=== PATIENT | female | born 1960 | race Caucasian/White ===

== ENCOUNTER → 2016-07-10 14:19 | Outpatient (CLI) | payer MEDICARE, MEDICAID ==
[2015-12-23 04:41] VITALS: BMI 23.4
[~2016-07-10 14:19] MED LIST: ASPIRIN81 MG PO; BAYER CHEWABLE81 MG PO; BUTALB-APAP-CA1 EACH PO; CARAFATE1 G PO; CARAFATE1 G/10 ML PO; DULCOLAX5 MG PO; EFFIENT10 MG PO; ESGIC TABLET1 TAB PO; HYDROCODON-ACE1 EAC7 PO; HYDROCODON-ACE1 EAC9 PO; HYDROCODONE-APA1 TAB PO; LIBRIUM25 MG PO; LINZESS145 MCG PO; MEDROL DOSE PACK4 MG PO; MIRALAX17 GM PO; NICODERM C1 PATCH .1 TRANSDERM; NICODERM C1 PATCH .2 TRANSDERM; NITROQUICK0.4 MG SL; OMEPRAZOLE20 M1 PO; PEPCID20 MG PO; PHENERGAN25 M1 PO; PLAVIX75 MG PO; PRAVACHOL20 MG PO; PROTONIX40 MG PO; PROVENTIL HFA6.7 GM INH; PROZAC20 MG PO; ROBAXIN-750750 MG PO; SOMA350 MG PO; TESSALON PERLE100 MG PO; VALIUM5 MG PO
== END | disposition home or self-care (01) ==
LOC: D.MRI 07-03 07:56
DX: M54.12 Radiculopathy, cervical region (principal)

== ENCOUNTER 2016-07-16 18:19 | Emergency (ER) | payer MEDICARE, MEDICAID ==
[2015-12-23 04:41] VITALS: BMI 23.4
[2016-07-16 21:06] LABS: BASOPHILS 0.2 % (0.0-2.0); EOSINOPHILS 1.8 % (0-7); HEMATOCRIT 41.3 % (36.0-48.0); HEMOGLOBIN 13.8 g/dL (12-16); IMMATURE GRANULOCYTES 0.4 % (0-5); LYMPHOCYTES 33.5 % (15-50); MCH 31.1 pg (26.0-34.0); MCHC 33.4 g/dL (31.0-37.0); MEAN PLATELET VOLUME 9.9 fL (7.4-10.4); MONOCYTES 10.6 % (2-11); NEUTROPHILS 53.5 % (40-80); PLATELET COUNT 275 10x3/uL (130-400); RBC 4.44 10x6/uL (4.00-5.40); RDW 14.7 % (11.5-14.5); WBC 8.2 10x3/uL (4.8-10.8)
[2016-07-16 21:18] LABS: ALBUMIN 3.6 g/dL (3.4-5.0); ANION GAP 14.4 mmol/L (8-16); BILIRUBIN - TOTAL 0.15 mg/dL (0.2-1.3); CALCIUM 8.8 mg/dL (8.5-10.1); CREATININE - SERUM 0.9 mg/dL (0.6-1.3); POTASSIUM - SERUM 4.4 mmol/L (3.5-5.1); PROTEIN - SERUM 7.6 g/dL (6.4-8.2)
== END 2016-07-16 22:25 | disposition home or self-care (01) ==
LOC: D.ER 18:19
PROVIDERS: Emergency Medicine
DX: R20.0 Anesthesia of skin (principal); R21 Rash and other nonspecific skin eruption; F31.9 Bipolar disorder, unspecified; I10 Essential (primary) hypertension; K21.9 Gastro-esophageal reflux disease without esophagitis; F17.200 Nicotine dependence, unspecified, uncomplicated

== ENCOUNTER 2016-12-26 08:29 | Observation (INO) | payer MEDICARE, MEDICAID ==
[2016-12-26 08:55] LABS: BASOPHILS 0.3 % (0-2); EOSINOPHILS 1.3 % (0-7); HEMATOCRIT 41.7 % (36.0-48.0); HEMOGLOBIN 14.1 g/dL (12-16); IMMATURE GRANULOCYTES 0.2 % (0-5); LYMPHOCYTES 36.9 % (15-50); MCH 31.8 pg (26.0-34.0); MCHC 33.8 g/dL (31.0-37.0); MCV 93.9 fL (80.0-100.0); MEAN PLATELET VOLUME 9.6 fL (7.4-10.4); NEUTROPHILS 48.3 % (40-80); PLATELET COUNT 276 10x3/uL (130-400); RBC 4.44 10x6/uL (4.00-5.40); RDW 14.8 % (11.5-14.5); WBC 6.1 10x3/uL (4.8-10.8)
[2016-12-26 09:10] LABS: ALBUMIN 3.3 g/dL (3.4-5.0); ALKALINE PHOSPHATASE 111 U/L (46-116); ALT (SGPT) 19 U/L (10-68); BILIRUBIN - TOTAL 0.32 mg/dL (0.2-1.3); CALC OSMOLALITY 274 mosm/kg (275-300); CALCIUM 8.8 mg/dL (8.5-10.1); CARBON DIOXIDE 25.5 mmol/L (21.0-32.0); CHLORIDE - SERUM 104 mmol/L (98-107); CREATININE - SERUM 0.8 mg/dL (0.6-1.3); GLUCOSE 88 mg/dL (74-106); POTASSIUM - SERUM 4.1 mmol/L (3.5-5.1); PROTEIN - SERUM 7.4 g/dL (6.4-8.2); SODIUM 138 mmol/L (136-145); UREA NITROGEN 13 mg/dL (7-18); eGFR NON AFRICAN AMERICAN 78 mL/min (90-120)
[2016-12-26 09:20] LABS: CHOL - HDL RATIO 2.9 ratio (2.3-4.1); CHOLESTEROL, TOTAL 214 mg/dL (0-200); CKMB 0.2 U/L (0.0-3.6); CREATINE KINASE 28 UL (21-215); HDL CHOLESTEROL 73 mg/dL (32-96); LDL CHOLESTEROL 116 mg/dL (0-100); LDL-HDL RATIO 1.6 ratio (1.5-3.5); TRIGLYCERIDE 127 mg/dL (30-200); TROPONIN-I < 0.017 ng/mL (0.000-0.060)
--- NOTE | 2016-12-26 13:23 | NUR ---
PATIENT ARRIVED TO ROOM VIA WHEELCHAIR FROM ED. ALERT/ORIENTED, AMBULATORY. 20 GAUGE TO LEFT HAND. 02 AT 2L/NC PLACED TO PATIENT AT THIS TIME. NO ACUTE DISTRESS.
[2016-12-26] MEDS ORDERED: BAYER CHEWABLE81 MG PO (13:27)
[2016-12-26] MEDS ORDERED: PEPCID40 MG PO (13:29)
[2016-12-26] MEDS ORDERED: HYDROCODONE-APA1 TAB PO (13:30)
[2016-12-26] MEDS ORDERED: VALIUM10 MG PO (13:31)
[2016-12-26] MEDS ORDERED: LINZESS290 MCG PO (13:32)
[2016-12-26 13:59] VITALS: BP 117/72; BMI 20.8
[2016-12-26 16:24] VITALS: BP 117/72
--- NOTE | 2016-12-26 18:28 | NUR ---
MEDICATED FOR PAIN AT THIS TIME. NO DISTRESS.
[2016-12-26 20:52] VITALS: BP 94/59
[2016-12-27 01:06] VITALS: BP 92/60
--- NOTE | 2016-12-27 01:43 | NUR ---
PT'S BP HAS BEEN 90/50'S AND SHE HAD RECIEVED IV PAIN MED AT 1830. SHE IS NOW HURTING/CANNOT SLEEP. SHE IS USED TO TAKING HYDROCODONES AND VALIUM AT BEDTIME. DECISION MADE TO GIVE HER THE HYDROCODONE AND THE 10MG VALIUM WITH THE KNOWLEDGE THAT THIS IS WHAT HER BODY IS USED TO TAKING .WILL MONITOR BLOOD PRESSURE, EXPECING A SLIGHT LOWERING, BUT WITH THE KNOWLEDGE THAT THE MEDS GIVEN HAVE BEEN SPACED OUT AND ARE BEING MONITORED.
[2016-12-27 02:08] VITALS: BP 98/61
[2016-12-27 04:00] VITALS: BP 86/47
--- NOTE | 2016-12-27 05:56 | NUR ---
AM MEDS GIVEN. PT RESTING IN BED WITH NO DISTRESS. CPOC.
--- NOTE | 2016-12-27 07:00 | NUR ---
RECEIVED REPORT. ASSUMED CARE OF PATIENT. PATIENT AWAKE, ALERT. SPOUSE AT BEDSIDE. PATIENT SITTING UP IN BED. DENIES PAIN OR DISCOMFORT AT THIS TIME. NO DISTRESS. SR ON TELEMETRY.
[2016-12-27 07:18] LABS: BASOPHILS 0 % (0-2); HEMATOCRIT 38.7 % (36.0-48.0); HEMOGLOBIN 12.9 g/dL (12-16); IMMATURE GRANULOCYTES 0.4 % (0-5); MCH 31.5 pg (26.0-34.0); MCHC 33.3 g/dL (31.0-37.0); MCV 94.4 fL (80.0-100.0); MEAN PLATELET VOLUME 9.8 fL (7.4-10.4); MONOCYTES 10.7 % (2-11); NEUTROPHILS 52.9 % (40-80); PLATELET COUNT 257 10x3/uL (130-400); RDW 15.1 % (11.5-14.5); WBC 5.1 10x3/uL (4.8-10.8)
[2016-12-27 07:30] LABS: CALC OSMOLALITY 279 mosm/kg (275-300); CALCIUM 8.7 mg/dL (8.5-10.1); CARBON DIOXIDE 27.3 mmol/L (21.0-32.0); CHLORIDE - SERUM 105 mmol/L (98-107); CREATININE - SERUM 0.8 mg/dL (0.6-1.3); GLUCOSE 97 mg/dL (74-106); SODIUM 140 mmol/L (136-145); UREA NITROGEN 15 mg/dL (7-18); eGFR NON AFRICAN AMERICAN 78 mL/min (90-120)
[2016-12-27 07:32] LABS: POTASSIUM - SERUM 4.8 mmol/L (3.5-5.1)
[2016-12-27 08:00] VITALS: BP 111/72
--- NOTE | 2016-12-27 09:21 | NUR ---
MEDICATED FOR PAIN AND ANXIETY AT THIS TIME. NO DISTRESS.
--- NOTE | 2016-12-27 10:58 | NUR ---
MEDICATED FOR HEADACHE AT THIS TIME. NO DISTRESS. PATIENT STATES THE PAIN IS SPREADING ALL OVER HER HEAD.
[2016-12-27 11:00] VITALS: BP 101/58
--- NOTE | 2016-12-27 13:15 | NUR ---
RESTING IN BED WITH EYES OPEN. NO DISTRESS. CALL LIGHT WITHIN REACH.
--- NOTE | 2016-12-27 13:39 | NUR ---
2MG MORPHINE ADMINISTERED AT THIS TIME FOR CHEST PAIN. RESTING IN BED WITH EYES OPEN. PATIENT STATES SHE HAS BEEN SWEATING, PATIENT UNDER 2 BLANKETS AND IT IS FREELANCE TRANSLATOR HER ROOM. BLANKETS REMOVED.
--- NOTE | 2016-12-27 13:48 | NUR ---
FOOD REQUEST SUBMITTED AT THIS TIME. UDS COLLECTED. NO DISTRESS.
[2016-12-27 14:10] LABS: UDS - AMPHET NEGATIVE QUAL (NEGATIVE); UDS - BARB POSITIVE QUAL (NEGATIVE); UDS - BENZO POSITIVE QUAL (NEGATIVE); UDS - COCAINE NEGATIVE QUAL (NEGATIVE); UDS - OPIATE POSITIVE QUAL (NEGATIVE); UDS - PCP NEGATIVE QUAL (NEGATIVE); UDS - THC NEGATIVE QUAL (NEGATIVE)
[2016-12-27 15:04] VITALS: BP 118/62
--- NOTE | 2016-12-27 18:15 | NUR ---
MEDICATED FOR PAIN AT THIS TIME. NO DISTRESS.
--- NOTE | 2016-12-27 21:45 | NUR ---
BEDTIME MEDS GIVEN, INCLUDING VALIUM 10MG TO HELP PT RELAX AND REST. CONVERSED WITH PT ON WHERE SHE FEELS HER PAIN, IF SHE HAS TALKED WITH THE MD ABOUT THE SPECIFIC LOCATIONS AND WHAT THE MD HAS SAID. PT SAID THE DOCTORS ARE NOT DOING ANYTHING. SHE IS VERY UPSET SAYING NOBODY BELIEVES HER. DISCUSSED PT CURRENT MED REGIMEN WHEN SHE IS AT HOME AND SHE TAKES HER MEDS DIFFERENTLY THAN THEY ARE BEING ADMINISTERED HERE. ENCOURAGED PT TO RELAX, TRY TO REST. CPOC.
[2016-12-28] VITALS: BP 128/77
--- NOTE | 2016-12-28 00:21 | NUR ---
PT OUT TO NURSES STATION, VERY TREMULOUS AND SHAKY. DEMANDING HER FIORCET FOR CHEST/BREAST PAIN. EXPLAINED THAT FIORCET IS FOR MIGRAINES BUT PT INSISTS SHE BE GIVEN IT NOW. PT YELLING AT NURSE SAYING NURSE ACCUSED HER OF BEING A DRUG ADDICT. DEMANDING A DRUG SCREEN RIGHT NOW TO PROVE SHE TAKES NO DRUGS. PT VERY UNFOCUSED, TEARFUL AND ANGRY ALL AT THE SAME TIME. PT THEN RETURNED TO HER ROOM. BROUGHT FIORCET TO PT'S ROOM AND HER INITIAL RESPONSE WAS TO REFUSE, THEN SHE FINALLY TOOK IT. REVIEWED EARLIER CONVERSATION WITH PATIENT AND APOLOGIZED IF SHE FELT THE QUESTIONS/COMMENTS BELITTLED HER IN ANY WAY. EXPLAINED THAT SINCE PT WAS IN SUCH AGONY ABOUT HER BREAST PAIN, THAT PROMPTED THE MULTIPLE QUESTIONS ABOUT WHAT SHE NORMALLY TAKES, HOW OFTEN SHE TAKES IT, ETC. PT IS CONVINCED NURSE WAS GATHERING INFO TO PROVE SHE WAS A "DRUG HEAD". PT ALSO SEEMS VERY UPSET ABOUT PENDING DISCHARGE IN AM. WILL MONITOR. PROVIDE MEDS ORDERED. CPOC.
--- NOTE | 2016-12-28 03:47 | NUR ---
PT NOW RESTING IN BED WITH EYES CLOSED. NO DISTRESS. NO FURTHER OUTBURSTS. CALL LIGHT IN REACH. CPOC.
[2016-12-28 04:00] VITALS: BP 111/78
[2016-12-28 05:38] LABS: BASOPHILS 0.1 % (0-2); EOSINOPHILS 0.9 % (0-7); HEMATOCRIT 38.8 % (36.0-48.0); IMMATURE GRANULOCYTES 0.2 % (0-5); LYMPHOCYTES 19.9 % (15-50); MCH 31.6 pg (26.0-34.0); MCHC 33.5 g/dL (31.0-37.0); MCV 94.4 fL (80.0-100.0); MONOCYTES 7.7 % (2-11); NEUTROPHILS 71.2 % (40-80); PLATELET COUNT 269 10x3/uL (130-400); RBC 4.11 10x6/uL (4.00-5.40); RDW 15.1 % (11.5-14.5)
[2016-12-28 05:47] LABS: CALC OSMOLALITY 279 mosm/kg (275-300); CALCIUM 8.3 mg/dL (8.5-10.1); CARBON DIOXIDE 27.7 mmol/L (21.0-32.0); CHLORIDE - SERUM 105 mmol/L (98-107); CREATININE - SERUM 0.8 mg/dL (0.6-1.3); GLUCOSE 95 mg/dL (74-106); POTASSIUM - SERUM 4.2 mmol/L (3.5-5.1); SODIUM 140 mmol/L (136-145); UREA NITROGEN 16 mg/dL (7-18); WBC 8.7 10x3/uL (4.8-10.8); eGFR NON AFRICAN AMERICAN 78 mL/min (90-120)
--- NOTE | 2016-12-28 07:30 | NUR ---
RECEIVED PT IN BED AAOX4 RESP UNLABORED APPEARS ANXIOUS DENIES ANY NEEDS OR DISCOMFORT AT THIS TIME WILL CONTINUE TO MONITOR
[2016-12-28 08:00] VITALS: BP 125/84
[2016-12-28 11:43] VITALS: BP 112/70
--- NOTE | 2016-12-28 13:15 | NUR ---
REVIEWED DISCHARGE INSTRUCTIONS WITH PT STATES UNDERSTANDING COPY GIVEN DCD LT WRIST SALINE LOCK WITH CATHETER TIP INTACT SITE FREE OF REDNESS OR EDEMA PT DISCHARGED HOME LEFT UNIT WALKING WITH REFUSED TO WAIT ON W/C IN STABLE CONDITION TOOK ALL PERSONAL BELONGINGS
--- NOTE | 2017-01-07 12:47 | EC ---
PATIENT:WARNER BARRY DATE OF SERVICE: 12/26/16 SEX: F MEDICAL RECORD: [id number] DATE OF : 58 LOCATION:D. D.212 AGE OF PATIENT: 56 ADMISSION DATE: 12/26/16 REFERRING PHYSICIAN: INTERPRETING PHYSICIAN: ASHLEY MAURER MD ECHOCARDIOGRAM REPORT ECHO CHARGES 4 ECHO COMPLETE CLINICAL DIAGNOSIS: CHEST PAIN HX OF CAD/STENTS ECHOCARDIOGRAPHIC MEASUREMENTS (adult normal given) AC root (d.<3.7cm) 3.8 cm LV Septum d (<1.2 cm> 1.2 cm Valve Excursion 2.4 cm LV Septum (systole) 1.6 cm Left Atria (s.<4.0cm> 3.4 cm LVPW d(<1.2cm) 1.1 cm RV (d.<2.3cm) 3.4 cm LVPW (sytole) 1.6 cm LV diastole(<5.6CM) 4.8 cm MV E-F(>70mm/sec) cm LV systole 3.3 cm LVOT Diameter 2.0 cm MV exc.(>10mm) 1.4 cm Est.ejection fraction (50-75%) % Pericardial Effusion N DOPPLER: LVIT cm/sec A 83.0 cm/sec E 76.0 cm/sec LA cm/sec RVSP 34 mmHg LVOT 105 cm/sec AOP1/2T m/s Asc. Ao 134 cm/sec RVOT 85 cm/sec RA cm/sec PA 103 cm/sec AV Gradient Peak 7.25 mmHg AV Mean 3.13 mmHg AV Area 2.4 cm MV Gradient Peak 4.23 mmHg MV Mean 1.51 mmHg MV Area cm COMMENTS: Automatic Grinding Machine Operator: Melissa VERDUGO [employer] Internship: 4 Dr. Maurer TAPE# PACS DATE OF SERVICE: 12/27/2016 Transthoracic Echocardiogram Report FINDINGS: 1. Left ventricle is normal size, normal function with inflow characteristics that showed mild diastolic dysfunction with ejection fraction of 60% to 65% without regional wall motion abnormalities. 2. The mitral valve is structurally and grossly normal. There is evidence of mild mitral regurgitation. ECHOCARDIOGRAM REPORT [id number] WARNER BARRY 3. The tricuspid valve is structurally normal with mild tricuspid regurgitation and a right ventricular systolic pressure is estimated between 25 and 30 mmHg. 4. The pulmonic valve is structurally normal. 5. The right atrium is normal size, normal function. 6. The right ventricle is mildly enlarged. 7. The aortic valve is normal. 8. The pericardium is normal. There is no demonstrated pericardial effusion. CONCLUSIONS: The patient has evidence of mild hypertensive heart disease with preserved LV systolic function and grossly normal valvular structure without any evidence of regional wall motion abnormalities. TRANSINT:[id number] Voice Confirmation ID: [id number] DOCUMENT ID: [id number] 01/05/2017 Edited to correct date of service, dm. ASHLEY MAURER MD at 1247 CC: [id number] DICTATION DATE: 12/28/16 0714 CONFIGURATION TECHNICIAN: 12/28/16 1055 DIS IN 12/28/16 [id number] [place] [address]
--- NOTE | 2017-01-18 15:54 | DS ---
PATIENT:WARNER BARRY :58 MEDICAL RECORD: [id number] DISCHARGE SUMMARY ADMISSION DATE: 12/26/16 DISCHARGE DATE: 12/28/16 ADMIT DATE: 12/26/2016. DISCHARGE DATE: 12/28/2016. DIAGNOSES: 1. Chest pain. 2. Abdominal pain. 3. Hypertension. 4. Coronary artery disease. CONSULTS: Dr. Marx DIAGNOSTIC STUDIES OR PROCEDURES: 1. Chest, which is negative. 2. CT of the abdomen and pelvis, which showed no acute abdominal finding. She had a large fecal material in the colon. 3. 2D Echo, which shows an EF of 60% to 65% with mild mitral regurg. She had mild tricuspid regurgitation. HOSPITAL COURSE: The full H&P is listed elsewhere in the chart for this 56-year-old patient who was admitted with lower sternal pain, midepigastric, and upper abdominal pain. She was placed on the medical jackson for further evaluation. She did have some bradycardia, rates in the 50s, but it did not require any kind of treatment or intervention. Cardiology was consulted due to her chest pain. It was felt to be atypical in etiology. She had no EKG changes. Enzymes were negative. It was felt to be cholinergic in nature. Her imaging studies of her abdomen did not show any acute pathology other than moderate constipation. The patient's clinical condition improved. She was thought to be stable to discharge to home. See med rec. TRANSINT:[id number] Voice Confirmation ID: [id number] DOCUMENT ID: [id number] Dictated By: ELVIS LENNON I have interviewed/examined the above patient and agree with these documented findings. BERNARDA DUTTA MD at 1110 at 1553 CC: [id number] DICTATION DATE: 01/13/17 0914 INSPECTOR ASSEMBLIES AND INSTALLATIONS: 01/13/17 1422 DIS IN 12/28/16 [address] [place] [address]
== END 2016-12-28 13:15 | disposition home or self-care (01) ==
LOC: D.ER 08:29 → D.M2 12:47 → OBSVTIME 12:47 → D.M2 12-28 13:15
PROVIDERS: Emergency Medicine; ADMIT Family Medicine
DX: R07.89 Other chest pain (principal); J44.9 Chronic obstructive pulmonary disease, unspecified; I25.10 Atherosclerotic heart disease of native coronary artery without angina pectoris; Z95.5 Presence of coronary angioplasty implant and graft; Z86.73 Personal history of transient ischemic attack (TIA), and cerebral infarction without residual deficits; I10 Essential (primary) hypertension; K21.9 Gastro-esophageal reflux disease without esophagitis; G89.29 Other chronic pain; K59.00 Constipation, unspecified; M81.0 Age-related osteoporosis without current pathological fracture; F17.203 Nicotine dependence unspecified, with withdrawal; R00.1 Bradycardia, unspecified

== ENCOUNTER → 2017-05-13 15:34 | Outpatient (CLI) | payer MEDICARE, MEDICAID ==
[~2017-05-13 15:34] MED LIST changes: +LINZESS290 MCG PO; +PEPCID40 MG PO; +VALIUM10 MG PO
== END | disposition home or self-care (01) ==
LOC: D.US 15:34
DX: I82.409 Acute embolism and thrombosis of unspecified deep veins of unspecified lower extremity (principal)

== ENCOUNTER 2017-05-21 12:53 | Emergency (ER) | payer MEDICARE, MEDICAID | END 2017-05-21 16:29 | disposition home or self-care (01) | LOC: D.ER 12:53 | DX: R51 Headache (principal); J01.90 Acute sinusitis, unspecified; I10 Essential (primary) hypertension; K21.9 Gastro-esophageal reflux disease without esophagitis; F17.200 Nicotine dependence, unspecified, uncomplicated ==

== ENCOUNTER 2017-08-06 11:09 | Observation (INO) | payer MEDICARE, MEDICAID ==
[~2017-08-06] VITALS: Ht 167.6 cm; Wt 56.8 kg
[2017-08-06 11:37] LABS: BASOPHILS 0.1 % (0-2); EOSINOPHILS 1.5 % (0-7); HEMATOCRIT 38.1 % (36.0-48.0); HEMOGLOBIN 13.1 g/dL (12-16); IMMATURE GRANULOCYTES 0.1 % (0-5); LYMPHOCYTES 27.4 % (15-50); MCH 31.3 pg (26.0-34.0); MCHC 34.4 g/dL (31.0-37.0); MCV 90.9 fL (80.0-100.0); MEAN PLATELET VOLUME 9.5 fL (7.4-10.4); MONOCYTES 8.2 % (2-11); NEUTROPHILS 62.7 % (40-80); PLATELET COUNT 281 10x3/uL (130-400); RBC 4.19 10x6/uL (4.00-5.40); WBC 7.4 10x3/uL (4.8-10.8)
[2017-08-06 12:10] LABS: ALBUMIN 3.4 g/dL (3.4-5.0); ALKALINE PHOSPHATASE 100 U/L (46-116); ALT (SGPT) 15 U/L (10-68); BILIRUBIN - TOTAL 0.27 mg/dL (0.2-1.3); CALC OSMOLALITY 275 mosm/kg (275-300); CALCIUM 8.7 mg/dL (8.5-10.1); CARBON DIOXIDE 26.7 mmol/L (21.0-32.0); CHLORIDE - SERUM 104 mmol/L (98-107); CREATININE - SERUM 0.8 mg/dL (0.6-1.3); GLUCOSE 104 mg/dL (74-106); POTASSIUM - SERUM 4.3 mmol/L (3.5-5.1); PROTEIN - SERUM 7.5 g/dL (6.4-8.2); SODIUM 138 mmol/L (136-145); UREA NITROGEN 13 mg/dL (7-18); eGFR NON AFRICAN AMERICAN 78 mL/min (90-120)
[2017-08-06 12:24] LABS: CHOL - HDL RATIO 3.3 ratio (2.3-4.1); CHOLESTEROL, TOTAL 183 mg/dL (0-200); CKMB 0.1 U/L (0.0-3.6); CREATINE KINASE 50 UL (21-215); HDL CHOLESTEROL 56 mg/dL (32-96); LDL CHOLESTEROL 94 mg/dL (0-100); LDL-HDL RATIO 1.7 ratio (1.5-3.5); TRIGLYCERIDE 165 mg/dL (30-200)
[2017-08-06 12:28] LABS: TROPONIN-I < 0.017 ng/mL (0.000-0.060)
[2017-08-06 16:25] VITALS: Ht 167.6 cm; Wt 56.8 kg
[2017-08-06 16:50] VITALS: BP 119/60
[2017-08-06 22:57] VITALS: BP 109/63
[2017-08-07 02:57] VITALS: BP 91/56
[2017-08-07 05:21] LABS: BASOPHILS 0.2 % (0-2); EOSINOPHILS 2.3 % (0-7); HEMATOCRIT 37.1 % (36.0-48.0); HEMOGLOBIN 12.5 g/dL (12-16); IMMATURE GRANULOCYTES 0.2 % (0-5); LYMPHOCYTES 37.4 % (15-50); MCH 30.9 pg (26.0-34.0); MCHC 33.7 g/dL (31.0-37.0); MCV 91.6 fL (80.0-100.0); MEAN PLATELET VOLUME 9.5 fL (7.4-10.4); MONOCYTES 7.3 % (2-11); NEUTROPHILS 52.6 % (40-80); PLATELET COUNT 255 10x3/uL (130-400); RBC 4.05 10x6/uL (4.00-5.40); RDW 14.2 % (11.5-14.5)
[2017-08-07 05:26] LABS: WBC 5.2 10x3/uL (4.8-10.8)
[2017-08-07 05:46] LABS: CALC OSMOLALITY 281 mosm/kg (275-300); CALCIUM 9.2 mg/dL (8.5-10.1); CARBON DIOXIDE 26.6 mmol/L (21.0-32.0); CHLORIDE - SERUM 108 mmol/L (98-107); CREATININE - SERUM 0.8 mg/dL (0.6-1.3); GLUCOSE 93 mg/dL (74-106); POTASSIUM - SERUM 4.2 mmol/L (3.5-5.1); SODIUM 142 mmol/L (136-145); UREA NITROGEN 11 mg/dL (7-18); eGFR NON AFRICAN AMERICAN 78 mL/min (90-120)
[2017-08-07 05:58] VITALS: BP 93/47
[2017-08-07 08:43] VITALS: BP 103/62
[2017-08-07] MEDS ORDERED: NICODERM C1 PATCH .1 TRANSDERM (08:58)
[2017-08-07] MEDS ORDERED: CARAFATE1 G PO (08:59)
[2017-08-07] MEDS ORDERED: PROTONIX40 MG PO (08:59)
== END 2017-08-07 10:52 | disposition home or self-care (01) ==
LOC: D.ER 11:09 → D.M2 12:43 → OBSVTIME 12:43 → D.M2 08-07 10:52
PROVIDERS: Emergency Medicine; Internal Medicine Nephrology
DX: R07.9 Chest pain, unspecified (principal); K25.9 Gastric ulcer, unspecified as acute or chronic, without hemorrhage or perforation; F17.203 Nicotine dependence unspecified, with withdrawal; I25.10 Atherosclerotic heart disease of native coronary artery without angina pectoris; Z95.5 Presence of coronary angioplasty implant and graft; I10 Essential (primary) hypertension; J44.9 Chronic obstructive pulmonary disease, unspecified; E78.5 Hyperlipidemia, unspecified; F41.8 Other specified anxiety disorders; Z86.73 Personal history of transient ischemic attack (TIA), and cerebral infarction without residual deficits

== ENCOUNTER 2017-11-20 05:18 | Inpatient (IN) | payer MEDICARE, MEDICAID ==
[~2017-11-20] VITALS: Ht 167.6 cm; Wt 54.0 kg
[2017-11-20] MEDS ORDERED: EFFIENT10 MG (05:21)
[2017-11-20] MEDS ORDERED: ROBAXIN500 MG (05:21)
[2017-11-20] MEDS ORDERED: SOMA350 MG (05:22)
[2017-11-20] MEDS ORDERED: SENNA PLUS TA1 UDTAB PO (05:22)
[2017-11-20 05:54] LABS: ALBUMIN 3.2 g/dL (3.4-5.0); ALKALINE PHOSPHATASE 99 U/L (46-116); ALT (SGPT) 11 U/L (10-68); BILIRUBIN - TOTAL 0.15 mg/dL (0.2-1.3); CALC OSMOLALITY 276 mosm/kg (275-300); CALCIUM 7.9 mg/dL (8.5-10.1); CARBON DIOXIDE 26.5 mmol/L (21.0-32.0); CHLORIDE - SERUM 106 mmol/L (98-107); CREATININE - SERUM 0.7 mg/dL (0.6-1.3); GLUCOSE 90 mg/dL (74-106); POTASSIUM - SERUM 3.9 mmol/L (3.5-5.1); SODIUM 139 mmol/L (136-145); UREA NITROGEN 10 mg/dL (7-18); eGFR NON AFRICAN AMERICAN > 90 mL/min (90-120)
[2017-11-20 05:58] LABS: AMYLASE - SERUM 57 U/L (25-115); LIPASE 145 U/L (73-393)
[2017-11-20 05:59] LABS: TROPONIN-I < 0.017 ng/mL (0.000-0.060)
[2017-11-20 06:57] LABS: BASOPHILS 0.2 % (0-2); EOSINOPHILS 1.1 % (0-7); HEMATOCRIT 36.1 % (36.0-48.0); HEMOGLOBIN 12.3 g/dL (12-16); IMMATURE GRANULOCYTES 0.2 % (0-5); MCH 31.3 pg (26.0-34.0); MCHC 34.1 g/dL (31.0-37.0); MCV 91.9 fL (80.0-100.0); MEAN PLATELET VOLUME 9.8 fL (7.4-10.4); MONOCYTES 7.4 % (2-11); NEUTROPHILS 52.1 % (40-80); RBC 3.93 10x6/uL (4.00-5.40); WBC 5.5 10x3/uL (4.8-10.8)
[2017-11-20 06:58] LABS: PLATELET COUNT 315 10x3/uL (130-400)
[2017-11-20 07:19] LABS: CKMB 1.5 U/L (0.0-3.6); CREATINE KINASE 112 UL (21-215)
[2017-11-20 09:03] VITALS: BP 139/93
[2017-11-20 12:03] LABS: CREATINE KINASE 212 UL (21-215)
[2017-11-20 12:07] LABS: TROPONIN-I < 0.017 ng/mL (0.000-0.060)
[2017-11-20 16:05] VITALS: BP 143/82
[2017-11-20 18:01] VITALS: BP 134/93; BMI 19.2
[2017-11-20 18:41] LABS: CKMB 2.4 U/L (0.0-3.6); CREATINE KINASE 227 UL (21-215)
[2017-11-20 18:42] LABS: TROPONIN-I < 0.017 ng/mL (0.000-0.060)
[2017-11-20 20:56] VITALS: BP 148/83
[2017-11-21 00:46] VITALS: BP 141/82
[2017-11-21 04:55] VITALS: BP 137/80
[2017-11-21 05:04] LABS: BASOPHILS 0.1 % (0-2); EOSINOPHILS 0.8 % (0-7); HEMATOCRIT 36.2 % (36.0-48.0); HEMOGLOBIN 12.2 g/dL (12-16); IMMATURE GRANULOCYTES 0.1 % (0-5); LYMPHOCYTES 21.5 % (15-50); MCHC 33.7 g/dL (31.0-37.0); MCV 92.1 fL (80.0-100.0); MEAN PLATELET VOLUME 9.5 fL (7.4-10.4); MONOCYTES 6.4 % (2-11); NEUTROPHILS 71.1 % (40-80); PLATELET COUNT 269 10x3/uL (130-400); RBC 3.93 10x6/uL (4.00-5.40); RDW 15.1 % (11.5-14.5)
[2017-11-21 05:12] LABS: WBC 7.2 10x3/uL (4.8-10.8)
[2017-11-21 05:26] LABS: ALBUMIN 3.1 g/dL (3.4-5.0); ALKALINE PHOSPHATASE 110 U/L (46-116); BILIRUBIN - TOTAL 0.34 mg/dL (0.2-1.3); CARBON DIOXIDE 23.1 mmol/L (21.0-32.0); CHLORIDE - SERUM 105 mmol/L (98-107); CREATININE - SERUM 0.7 mg/dL (0.6-1.3); GLUCOSE 84 mg/dL (74-106); POTASSIUM - SERUM 3.6 mmol/L (3.5-5.1); PROTEIN - SERUM 6.8 g/dL (6.4-8.2); SODIUM 135 mmol/L (136-145); eGFR NON AFRICAN AMERICAN > 90 mL/min (90-120)
[2017-11-21 05:28] LABS: ALT (SGPT) 14 U/L (10-68); CALC OSMOLALITY 266 mosm/kg (275-300); UREA NITROGEN 7 mg/dL (7-18)
[2017-11-21 15:56] VITALS: BP 133/87
[2017-11-21 20:26] VITALS: BP 114/63
[2017-11-22 04:49] VITALS: BP 108/71
[2017-11-22 06:04] LABS: BASOPHILS 0.2 % (0-2); EOSINOPHILS 1.4 % (0-7); HEMATOCRIT 33.9 % (36.0-48.0); HEMOGLOBIN 11.4 g/dL (12-16); IMMATURE GRANULOCYTES 0.2 % (0-5); LYMPHOCYTES 32.6 % (15-50); MCH 31.1 pg (26.0-34.0); MCHC 33.6 g/dL (31.0-37.0); MCV 92.6 fL (80.0-100.0); MEAN PLATELET VOLUME 10.1 fL (7.4-10.4); MONOCYTES 8.1 % (2-11); NEUTROPHILS 57.5 % (40-80); PLATELET COUNT 268 10x3/uL (130-400); RBC 3.66 10x6/uL (4.00-5.40); RDW 15.2 % (11.5-14.5); WBC 6.5 10x3/uL (4.8-10.8)
[2017-11-22 06:38] LABS: ALBUMIN 2.6 g/dL (3.4-5.0); ANION GAP 11.4 mmol/L (8-16); BILIRUBIN - TOTAL 0.28 mg/dL (0.2-1.3); CALCIUM 7.6 mg/dL (8.5-10.1); POTASSIUM - SERUM 3.4 mmol/L (3.5-5.1)
[2017-11-22 06:40] LABS: CREATININE - SERUM 0.9 mg/dL (0.6-1.3)
[2017-11-22 09:11] VITALS: BP 123/75
[2017-11-22 12:18] VITALS: BP 132/82
[2017-11-22 12:30] VITALS: Ht 167.6 cm; Wt 54.0 kg
[2017-11-22 23:44] VITALS: BP 117/66
[2017-11-23 03:40] VITALS: BP 116/76
[2017-11-23 06:27] LABS: BASOPHILS 0.2 % (0-2); EOSINOPHILS 1.7 % (0-7); HEMATOCRIT 33.9 % (36.0-48.0); HEMOGLOBIN 11.5 g/dL (12-16); IMMATURE GRANULOCYTES 0.2 % (0-5); LYMPHOCYTES 36.6 % (15-50); MCH 31.3 pg (26.0-34.0); MCHC 33.9 g/dL (31.0-37.0); MCV 92.1 fL (80.0-100.0); MONOCYTES 7.9 % (2-11); NEUTROPHILS 53.4 % (40-80); PLATELET COUNT 251 10x3/uL (130-400); RBC 3.68 10x6/uL (4.00-5.40)
[2017-11-23 06:52] LABS: ALBUMIN 2.7 g/dL (3.4-5.0); ALKALINE PHOSPHATASE 93 U/L (46-116); BILIRUBIN - TOTAL 0.23 mg/dL (0.2-1.3); CALCIUM 7.7 mg/dL (8.5-10.1); CARBON DIOXIDE 29.2 mmol/L (21.0-32.0); CHLORIDE - SERUM 107 mmol/L (98-107); CREATININE - SERUM 0.7 mg/dL (0.6-1.3); GLUCOSE 82 mg/dL (74-106); POTASSIUM - SERUM 3.5 mmol/L (3.5-5.1); PROTEIN - SERUM 6.3 g/dL (6.4-8.2); SODIUM 139 mmol/L (136-145); eGFR NON AFRICAN AMERICAN > 90 mL/min (90-120)
[2017-11-23 06:58] LABS: ALT (SGPT) 8 U/L (10-68); CALC OSMOLALITY 273 mosm/kg (275-300); UREA NITROGEN 5 mg/dL (7-18)
[2017-11-23 09:02] VITALS: BP 136/89
[2017-11-23 13:39] VITALS: BP 131/85
[2017-11-23 20:00] VITALS: BP 90/58
[2017-11-24 06:18] VITALS: BP 126/73
[2017-11-24 06:22] LABS: BASOPHILS 0.2 % (0-2); EOSINOPHILS 2.1 % (0-7); HEMATOCRIT 33.7 % (36.0-48.0); HEMOGLOBIN 11.5 g/dL (12-16); IMMATURE GRANULOCYTES 0.2 % (0-5); LYMPHOCYTES 30.6 % (15-50); MCH 31.2 pg (26.0-34.0); MCHC 34.1 g/dL (31.0-37.0); MCV 91.3 fL (80.0-100.0); MEAN PLATELET VOLUME 9.8 fL (7.4-10.4); MONOCYTES 10.5 % (2-11); NEUTROPHILS 56.4 % (40-80); PLATELET COUNT 226 10x3/uL (130-400); RBC 3.69 10x6/uL (4.00-5.40); RDW 14.8 % (11.5-14.5); WBC 4.9 10x3/uL (4.8-10.8)
[2017-11-24 06:40] LABS: ALBUMIN 2.6 g/dL (3.4-5.0); ALKALINE PHOSPHATASE 90 U/L (46-116); BILIRUBIN - TOTAL 0.17 mg/dL (0.2-1.3); CALC OSMOLALITY 274 mosm/kg (275-300); CALCIUM 7.9 mg/dL (8.5-10.1); CARBON DIOXIDE 26.9 mmol/L (21.0-32.0); CHLORIDE - SERUM 108 mmol/L (98-107); CREATININE - SERUM 0.7 mg/dL (0.6-1.3); GLUCOSE 88 mg/dL (74-106); POTASSIUM - SERUM 3.8 mmol/L (3.5-5.1); PROTEIN - SERUM 6.3 g/dL (6.4-8.2); SODIUM 139 mmol/L (136-145); UREA NITROGEN 6 mg/dL (7-18); eGFR NON AFRICAN AMERICAN > 90 mL/min (90-120)
[2017-11-24 06:41] LABS: ALT (SGPT) 12 U/L (10-68)
[2017-11-24] MEDS ORDERED: LEVSIN/ANASP0.125 MG PO (09:03)
[2017-11-24 09:33] VITALS: BP 139/88
== END 2017-11-24 10:55 | disposition home or self-care (01) | DRG 392 ==
LOC: OBSVTIME → D.ER 05:18 → D.MS 05:57 → D.EDHOLD 05:57 → D.ER 05:57 → OBSVTIME 05:57 → D.MS 06:18 → D.EDHOLD 06:18 → D.ER 06:25 → D.MS 11-23 17:33
PROVIDERS: Family Medicine; Internal Medicine Gastroenterology
PROC: 0DD68ZX Extraction of Stomach, Via Natural or Artificial Opening Endoscopic, Diagnostic (ICD-10-PCS; 2017-11-23)
PROC: 0DD58ZX Extraction of Esophagus, Via Natural or Artificial Opening Endoscopic, Diagnostic (ICD-10-PCS; 2017-11-23)
PROC: 0DD98ZX Extraction of Duodenum, Via Natural or Artificial Opening Endoscopic, Diagnostic (ICD-10-PCS; principal; 2017-11-23 15:30)
DX: K21.0 Gastro-esophageal reflux disease with esophagitis (principal); F17.213 Nicotine dependence, cigarettes, with withdrawal; K44.9 Diaphragmatic hernia without obstruction or gangrene; K59.00 Constipation, unspecified; K29.80 Duodenitis without bleeding; K29.60 Other gastritis without bleeding; J43.9 Emphysema, unspecified; I25.10 Atherosclerotic heart disease of native coronary artery without angina pectoris; Z95.5 Presence of coronary angioplasty implant and graft; D64.9 Anemia, unspecified; K22.2 Esophageal obstruction; F41.8 Other specified anxiety disorders

== ENCOUNTER 2018-03-31 16:52 | Emergency (ER) | payer MEDICARE, MEDICAID ==
[~2018-03-31] VITALS: Ht 167.6 cm; Wt 53.6 kg
[~2018-03-31 16:52] MED LIST changes: +EFFIENT10 MG; +LEVSIN/ANASP0.125 MG PO; +ROBAXIN500 MG; +SENNA PLUS TA1 UDTAB PO; +SOMA350 MG
[2018-03-31 17:05] VITALS: BP 132/90; Ht 167.6 cm; Wt 53.6 kg
[2018-03-31] MEDS ORDERED: COMPAZINE5 MG PO (17:08)
[2018-03-31 17:59] LABS: BASOPHILS 0.2 % (0-2); EOSINOPHILS 2.9 % (0-7); HEMATOCRIT 36.9 % (36.0-48.0); HEMOGLOBIN 12.5 g/dL (12-16); IMMATURE GRANULOCYTES 0.2 % (0-5); LYMPHOCYTES 49.8 % (15-50); MCH 30.9 pg (26.0-34.0); MCHC 33.9 g/dL (31.0-37.0); MCV 91.3 fL (80.0-100.0); MEAN PLATELET VOLUME 9.7 fL (7.4-10.4); MONOCYTES 10.2 % (2-11); NEUTROPHILS 36.7 % (40-80); RBC 4.04 10x6/uL (4.00-5.40); RDW 14.3 % (11.5-14.5); WBC 4.5 10x3/uL (4.8-10.8)
[2018-03-31 18:00] LABS: PLATELET COUNT 302 10x3/uL (130-400)
[2018-03-31 18:10] LABS: APTT 26.5 SECONDS (22.8-39.4); INR 0.91 (0.85-1.17); PROTIME 11.8 SECONDS (11.6-15.0)
[2018-03-31 18:17] LABS: ALBUMIN 3.2 g/dL (3.4-5.0); ALKALINE PHOSPHATASE 125 U/L (46-116); ALT (SGPT) 14 U/L (10-68); BILIRUBIN - TOTAL 0.14 mg/dL (0.2-1.3); CALC OSMOLALITY 282 mosm/kg (275-300); CALCIUM 8.4 mg/dL (8.5-10.1); CARBON DIOXIDE 24.4 mmol/L (21.0-32.0); CHLORIDE - SERUM 107 mmol/L (98-107); CREATININE - SERUM 0.9 mg/dL (0.6-1.3); GLUCOSE 119 mg/dL (74-106); POTASSIUM - SERUM 3.7 mmol/L (3.5-5.1); PROTEIN - SERUM 7.2 g/dL (6.4-8.2); SODIUM 142 mmol/L (136-145); UREA NITROGEN 11 mg/dL (7-18); eGFR NON AFRICAN AMERICAN 68 mL/min (90-120)
[2018-03-31 18:34] LABS: CKMB 0.4 U/L (0.0-3.6); CREATINE KINASE 24 UL (21-215); MAGNESIUM - SERUM 1.9 mg/dL (1.8-2.4); TROPONIN-I < 0.017 ng/mL (0.000-0.060)
== END 2018-03-31 20:05 | disposition left against medical advice (07) ==
LOC: D.ER 16:52
PROVIDERS: Family Medicine
DX: R06.02 Shortness of breath (principal)

== ENCOUNTER 2018-04-01 13:43 | Observation (INO) | payer MEDICARE, MEDICAID ==
[~2018-04-01] VITALS: Ht 170.2 cm; Wt 54.9 kg
--- NOTE | ~2018-04-01 | HEMODYNAMI ---
PATIENT:WARNER BARRY MEDICAL RECORD: [id number] : 58 LOCATION:D. D.2116 ADMISSION DATE: 04/01/18 Generatedon:04/04/20188:16 Patient name: WARNER BARRY Patient #: [id number] SS N: : 1960 Date of study: 04/04/2018 Page: Of Hemodynamic Procedure Report Patient Data Patient Demographics Procedure consent was obtained First Name: WARNER Gender: Female Last Name: JHONNY : 1960 [facility] Initial: L Age: 57 year(s) Patient #: [id number] Race: Additional ID: [id number] Contact details [address]: [address] [place] [address] ROAD State: [place] City: [place] Zip code: [address] Past Medical History Allergies Allergen Reaction Date Comments Reported Other allergy 04/04/2018 Nitro, Dilaudid, Zofran. Admission Admission Data Admission Date: 04/01/2018 Admission Time: 14:20 Admit Source: Emergency department Room #: D.2116 Lab Results Lab Result Date: 04/02/2018 Lab Result Time: 9:45 Biochemistry Name Units Result Min Max BUN mg/dl 12 --(-*--)-- 7 18 Creatinine mg/dl 0.9 --(-*--)-- 0.6 1.3 CBC Name Units Result Min Max Hematocrit % 38.3 *-(----)-- 42 54 Hemoglobin g/dl 13.1 -*(----)-- 13.5 17.5 Procedure Procedure Types Cath Procedure Diagnostic Procedure C LH w/Coronaries Sedation Charges Moderate Sedation up to 15 minutes Procedure Description Procedure Date Procedure Date: 04/04/2018 Procedure Start Time: 8:01 Procedure End Time: 8:16 Procedure Staff Name Function Lowell Cadena MD Performing Physician Nacoh Gtz RT Monitor Aisha Mancilla RT Scrub Amie Ocampo RN Nurse Kerri Capellan RN Pharmacist Aide Procedure Data Cath Procedure Fluoroscopy Diagnostic fluoroscopy Total fluoroscopy Time: 1.4 time: 1.4 min min Diagnostic fluoroscopy Total fluoroscopy dose: 196 dose: 196 mGy mGy Contrast Material Contrast Material Type Amount (ml) Isovue 300 65 Entry Location Entry Primary Successful Side Size Upsize Upsize Entry Closure Succes sful Closure Location (Fr) 1 (Fr) 2 (Fr) Remarks Device Remarks Femoral Right 5 Fr Exoseal artery Estimated blood loss: 5 ml Diagnostic catheters Device Type Used For End Catheter Placement MULTIPACK JL 4.0 5Fr Procedure catheter MULTIPACK 3DRC 5Fr Procedure catheter MULTIPACK Pigtail 5 Fr Procedure catheter Procedure Complications No complications Procedure Medications Medication Administration Route Dosage 0.9% NaCl I.V. 100 ml/hr Oxygen etCO2 Nasal cannula 2 l/min Lidocaine 2% added to field 20 Heparin Flush Bag added to field 2 bags (1000units/500ml NS) Benadryl I.V. 50 mg Versed I.V. 2 mg Fentanyl I.V. 50 mcg Versed I.V. 2 mg Fentanyl I.V. 50 mcg Hemodynamics Rest HGB: 13.1 (g/dl) Heart Rate: 52 (bpm) Pressure Samples Time Site Value (mmHg) Purpose Heart Use Rate(bpm) 8:10 LV 183/-12,11 Snapshot 55 8:10 LV 150/0,6 Snapshot 55 Gradients Valve Time Site Site Mean SEP/DFP Peak To Heart Use 1 2 (mmHg) (sec/min) Peak Rate (mmHg) (bpm) Aortic 8:11 LV AO 56 Snapshots Pre Cath Intra NCS Post Cath Vital Signs Time Heart Resp SPO2 etCO2 NIBP (mmHg) Rhythm Pain Sedation Rate (ipm) (%) (mmHg) Status Level (bpm) 7:44:50 49 17 98 36 167/90(121) SB 0 (11) 10(A) , No pain 7:49:04 51 12 98 35 178/103(149) SB 0 (11) 10(A) , No pain 7:53:22 51 11 99 34.4 168/98(117) SB 0 (11) 10(A) , No pain 7:57:40 50 13 98 32 164/86(108) SB 0 (11) 9(A) , No pain 8:02:01 50 13 97 38.2 153/76(111) SB 0 (11) 10(A) , No pain 8:06:15 51 12 97 26.9 140/82(104) SB 0 (11) 9(A) , No pain 8:10:20 60 13 98 31.4 144/91(104) SB 0 (11) 9(A) , No pain 8:14:32 53 14 96 27.7 141/76(104) SB 0 (11) 10(A) , No pain Medications Time Medication Route Dose Verified Delivered Reason Notes Effe ctiveness by by 7:46:20 0.9% NaCl I.V. 100 Lowell Amie used for ml/hr Surinder Ocampo station captain 7:46:27 Oxygen etCO2 2 Lowell Amie used for Nasal l/min Surinder Ocampo procedure cannula RN 7:46:33 Lidocaine 2% added 20ml Lowell Lowell for local to vial Surinder Cadena MD anesthetic field 7:46:43 Heparin Flush added 2 Lowell Lowell used for Bag to bags Surinder Cadena MD procedure (1000units/500ml field NS) 7:46:55 Benadryl I.V. 50 mg Lowell Amie Per Surinder Ocampo physician RN 7:54:48 Versed I.V. 2 mg Lowell Amie for Surinder Ocampo sedation RN 7:54:53 Fentanyl I.V. 50 Lowell Amie for mcg Surinder Ocampo sedation RN 8:02:51 Versed I.V. 2 mg Lowell Amie for Surinder Ocampo sedation RN 8:02:57 Fentanyl I.V. 50 Lowell Amie for mcg Surinder Ocampo sedation script writer Log Time Note 7:31:12 Informed consent obtained and on chart 7:31:16 Admit Source: Emergency department 7:32:04 Diagnostic Cath status Elective 7:32:05 Kerri Capellan RN sent for patient. Start room use. 7:32:06 Time tracking: Regular hours (M-F 7:00 - 5:00) 7:32:10 Plan of Care:Hemodynamics will remain stable., Cardiac rhythm will remain stable., Comfort level will be maintained., Respiratory function will remain adequate., Patient/ family verbilizes understanding of procedure., Procedure tolerated without complication., Recovers from procedure without complications.. 7:32:52 H&P Date Dictated: 04/01/2018 Within 30 days and on chart.. 7:39:26 Patient received from Med II to CCL 1 Alert and oriented. Tansferred to table in Supine position. 7:39:28 Warm blankets applied, and elmer hugger turned on for patient comfort. 7:39:28 Correct patient and procedure confirmed by team. 7:39:31 ECG and BP/O2 sat monitors applied to patient. 7:39:32 Pre-procedure instructions explained to patient. 7:39:32 Pre-op teaching completed and patient verbalized understanding. 7:39:35 Family in patients room. 7:39:36 Patient NPO since Midnight. 7:43:44 Vital chart was started 7:46:20 0.9% NaCl 100 ml/hr I.V. was administered by Amie Ocampo RN; used for procedure; 7:46:27 Oxygen 2 l/min etCO2 Nasal cannula was administered by Amie Ocampo RN; used for procedure; 7:46:33 Lidocaine 2% 20ml vial added to field was administered by Lowell Cadena MD; for local anesthetic; 7:46:43 Heparin Flush Bag (1000units/500ml NS) 2 bags added to field was administered by Lowell Cadena MD; used for procedure; 7:46:55 Benadryl 50 mg I.V. was administered by Amie Ocampo RN; Per physician; 7:51:11 Baseline sample Acquired. 7:51:15 Full Disclosure recording started 7:52:06 Patient allergic to Other allergyNitro, Dilaudid, Zofran. 7:52:09 Is the patient allergic to Iodine/contrast media? No. 7:52:21 Is patient on blood thinner?No 7:52:22 Patient diabetic? No. 7:52:25 Previous problem with sedation/anesthesia? No ? 7:52:34 Snore? Yes 7:52:35 Sleep apnea? No 7:52:36 Deviated septum? No 7:52:37 Opens mouth fully? Yes 7:52:38 Sticks out tongue? Yes 7:52:56 Airway obstruction? Yes asthma, emphysema 7:53:02 Dentures? Yes in tight 7:53:05 Pre procedure: right dorsailis pedis pulse 2+ Normal; easily identifiable; not easily obliterated 7:53:07 Patient pain scale 0/10 ?. 7:53:11 IV patent on arrival in right forearm with 0.9% NaCl at [facility]. 7:53:50 Lab Result : Creatinine 0.9 mg/dl 7:53:50 Lab Result : BUN 12 mg/dl 7:53:50 Lab Result : Hemoglobin 13.1 g/dl 7:53:50 Lab Result : Hematocrit 38.3 % 7:53:52 Lab results completed and on chart. 7:53:54 Right groin area was prepped with chlora-prep and draped in sterile fashion 7:53:55 Alarms reviewed by R. N. 7:53:55 Sharps counted by scrub and verified by R.N. 7:53:57 Use device set Femoral Dx 7:53:58 ACIST Syringe (58752) opened to sterile field. 7:53:59 Bag Decanter (2002S) opened to sterile field. 7:54:00 Medline Cath Pack ([id number]) opened to sterile field. 7:54:01 ACIST Hand Control (21751) opened to sterile field. 7:54:01 ACIST Manifold (19444) opened to sterile field. 7:54:02 Tegaderm 4 x 4 (1626W) opened to sterile field. 7:54:03 DIAGNOSTIC Multipack 5Fr catheter set (EG1555) opened to sterile field. 7:54:04 DIAGNOSTIC WIRE .035 260cm J wire (585510) opened to sterile field. 7:54:05 SHEATH 5FR Commercial Point (TTQ170) opened to sterile field. 7:54:17 Physician arrived 7:54:18 --------ALL STOP TIME OUT------ 7:54:18 Final Timeout: patient, procedure, and site verified with staff and physician. All members of the team are in agreement. 7:54:19 Right groin site verified by team. 7:54:22 Physical assessment completed. ASA score P 2 - A patient with mild systemic disease as per Lowell Cadena MD. 7:54:24 Sedation plan: IV Moderate Sedation Medication:Versed, Fentanyl 7:54:48 Versed 2 mg I.V. was administered by Amie Ocampo RN; for sedation; 7:54:53 Fentanyl 50 mcg I.V. was administered by Amie Ocampo RN; for sedation; 8:01:43 Procedure started. 8:01:47 Local anesthetic to right femoral artery with Lidocaine 2% by Lowell Cadena MD.INITIAL ACCESS ONLY 8:02:05 Zero performed for pressure channel P1 8:02:48 A 5 Fr sheath was inserted into the Right Femoral artery 8:02:51 Versed 2 mg I.V. was administered by Amie Ocampo RN; for sedation; 8:02:57 Fentanyl 50 mcg I.V. was administered by Amie Ocampo RN; for sedation; 8:05:47 A MULTIPACK JL 4.0 5Fr catheter was advanced over the wire and used for Procedure. 8:06:08 LCA angiography performed. 8:08:20 Catheter exchanged over wire. 8:08:26 A MULTIPACK 3DRC 5Fr catheter was advanced over the wire and used for Procedure. 8:08:46 RCA angiography performed. 8:08:59 Catheter exchanged over wire. 8:09:04 A MULTIPACK Pigtail 5 Fr catheter was advanced over the wire and used for Procedure. 8:10:47 LV gram done using FREY 8:10:50 Injector settings: Ml/sec: 10, Volume: 20, 8:10:52 LV hemodynamics recorded. 8:10:58 EF : 50 % 8:11:29 EXOSEAL 5Fr (EX500) opened to sterile field. 8:12:19 Sheath removed intact; hemostasis achieved with Exoseal to the Right Femoral artery. 8:12:20 Procedure ended.(Physican Out) 8:15:02 Fluoroscopy time 01.40 minutes. 8:15:13 Flurop Dose total: 196 8:15:13 Fluoroscopy dose: 196 mGy 8:15:16 Contrast amount:Isovue 300 65ml. 8:15:17 Sharps counted by scrub and verified by R.N. 8:15:17 Insertion/operative site no bleeding no hematoma. 8:15:20 Post-op/insertion site Right Femoral artery dressed using a 4 x 4 and Tegaderm. 8:15:24 Post right femoral artery:stable, soft, clean and dry 8:15:25 Post Procedure Pulses reassessed and unchanged 8:15:27 Post-procedure physical assessment completed. ASA score P 2 - A patient with mild systemic disease as per Lowell Cadena MD. 8:15:28 Post procedure rhythm: unchanged. 8:15:31 Estimated blood loss: 5 ml 8:15:32 Post procedure instruction explained to patient.Patient verbalizes understanding. 8:15:32 Patient needs reinforcement of post procedure teaching. 8:15:42 Procedure type changed to Cath procedure, Diagnostic procedure, LHC, LHC w/Coronaries, Sedation Charges, Moderate Sedation up to 15 minutes 8:16:02 Procedure and supply charges have been captured, reviewed, submitted and are correct. 8:16:04 Procedure Complication : No complications 8:16:06 Vital chart was stopped 8:16:06 See physician's report for complete and final results. 8:16:08 Report given to PCU. 8:16:10 Patient transfered to PCU with Stretcher. 8:16:13 Procedure ended. 8:16:13 Full Disclosure recording stopped 8:16:17 End room use (Document Last) Device Usage Item Name Manufacture Quantity Catalog Hospital Part Current Minimal L ot# / Number Charge Number Stock Stock Serial# Code ACIST Acist 1 70191 161648 362102 060356 20 Syringe Medical (93612) Systems Inc Bag Microtek 1 2001S 378084 50204 154241 5 Decanter Medical Inc. () Medline Medline 1 [id number] 289976 52041 918516 5 Cath Pack ([id number]) ACIST Hand Acist 1 75924 823441 312342 835684 5 Control Medical (26776) Systems Inc ACIST Acist 1 10540 031366 550812 213559 5 Manifold Medical (98023) Systems Inc Tegaderm 4 3M 1 1626W 156559 322082 837369 5 x 4 (1626W) DIAGNOSTIC Cardinal 1 KM2385 212520 07167 326999 30 Multipack Health 5Fr catheter set (HN1083) DIAGNOSTIC St Vasile 1 494756 735860 886502 776498 30 WIRE .035 260cm J wire (393472) SHEATH 5FR Terumo 1 ZHZ328 458902 650625 579121 5 Commercial Point (BTK177) MULTIPACK Cardinal 1 208174 5 JL 4.0 5Fr Health catheter MULTIPACK Cardinal 1 953175 5 3DRC 5Fr Health catheter MULTIPACK Cardinal 1 479211 5 Pigtail 5 Health Fr catheter EXOSEAL 5Fr Cardinal 1 EX500 149603 973558 263206 10 (EX500) Health Signature Audit [place] Stage Time Signature Unsigned Intra-Procedure 04/04/2018 Nacho Gtz 8:16:29 AM RT(R) Signatures Monitor : Nacho Gtz RT Signature : Date : Time : [id number] [place] [address]
[~2018-04-01 13:43] MED LIST changes: +COMPAZINE5 MG PO
[2018-04-01 14:41] VITALS: BP 122/69; BMI 19.2
[2018-04-01 15:14] LABS: BASOPHILS 0.2 % (0-2); EOSINOPHILS 1.9 % (0-7); HEMATOCRIT 38.3 % (36.0-48.0); HEMOGLOBIN 13.1 g/dL (12-16); IMMATURE GRANULOCYTES 0.3 % (0-5); LYMPHOCYTES 40.7 % (15-50); MCH 31.4 pg (26.0-34.0); MCHC 34.2 g/dL (31.0-37.0); MCV 91.8 fL (80.0-100.0); MEAN PLATELET VOLUME 9.4 fL (7.4-10.4); MONOCYTES 6.5 % (2-11); NEUTROPHILS 50.4 % (40-80); PLATELET COUNT 301 10x3/uL (130-400); RBC 4.17 10x6/uL (4.00-5.40); RDW 14.4 % (11.5-14.5); WBC 5.9 10x3/uL (4.8-10.8)
[2018-04-01 15:27] LABS: PROTIME 12.7 SECONDS (11.6-15.0)
[2018-04-01 15:49] LABS: ALBUMIN 3.5 g/dL (3.4-5.0); ALKALINE PHOSPHATASE 115 U/L (46-116); ALT (SGPT) 15 U/L (10-68); BILIRUBIN - TOTAL 0.15 mg/dL (0.2-1.3); CALC OSMOLALITY 280 mosm/kg (275-300); CALCIUM 8.5 mg/dL (8.5-10.1); CARBON DIOXIDE 26.7 mmol/L (21.0-32.0); CHLORIDE - SERUM 105 mmol/L (98-107); CKMB 0.5 U/L (0.0-3.6); CREATINE KINASE 29 UL (21-215); CREATININE - SERUM 0.8 mg/dL (0.6-1.3); GLUCOSE 86 mg/dL (74-106); POTASSIUM - SERUM 4.1 mmol/L (3.5-5.1); PROTEIN - SERUM 7.3 g/dL (6.4-8.2); SODIUM 142 mmol/L (136-145); TROPONIN-I < 0.017 ng/mL (0.000-0.060); UREA NITROGEN 9 mg/dL (7-18); eGFR NON AFRICAN AMERICAN 78 mL/min (90-120)
[2018-04-01 16:09] VITALS: Ht 170.2 cm; Wt 54.9 kg
[2018-04-01 22:24] LABS: CKMB 0.4 U/L (0.0-3.6); CREATINE KINASE 41 UL (21-215); TROPONIN-I < 0.017 ng/mL (0.000-0.060)
[2018-04-02 09:01] VITALS: BP 123/71
[2018-04-02 10:46] LABS: BASOPHILS 0.2 % (0-2); EOSINOPHILS 2.2 % (0-7); HEMATOCRIT 36.4 % (36.0-48.0); HEMOGLOBIN 12.2 g/dL (12-16); IMMATURE GRANULOCYTES 0.3 % (0-5); LYMPHOCYTES 37.2 % (15-50); MCHC 33.5 g/dL (31.0-37.0); MCV 92.6 fL (80.0-100.0); MEAN PLATELET VOLUME 9.7 fL (7.4-10.4); MONOCYTES 9.9 % (2-11); NEUTROPHILS 50.2 % (40-80); PLATELET COUNT 284 10x3/uL (130-400); RBC 3.93 10x6/uL (4.00-5.40); RDW 14.5 % (11.5-14.5); WBC 6.5 10x3/uL (4.8-10.8)
[2018-04-02 10:48] LABS: CKMB 0.3 U/L (0.0-3.6); CREATINE KINASE 21 UL (21-215); TROPONIN-I < 0.017 ng/mL (0.000-0.060)
[2018-04-02 10:50] LABS: ANION GAP 14.3 mmol/L (8-16); CALCIUM 8.4 mg/dL (8.5-10.1); CARBON DIOXIDE 23.7 mmol/L (21.0-32.0); CREATININE - SERUM 0.9 mg/dL (0.6-1.3)
[2018-04-02 11:11] LABS: APPEARANCE CLEAR (CLEAR); BACTERIA MANY /hpf (NONE SEEN); BILIRUBIN NEGATIVE (NEGATIVE); COLOR YELLOW (YELLOW); EPITHELIAL CELLS 0-5 /hpf (0-5); GLUCOSE NEGATIVE (NEGATIVE); KETONE NEGATIVE (NEGATIVE); NITRITE NEGATIVE (NEGATIVE); PROTEIN NEGATIVE (NEGATIVE); RED CELLS - URINE 0-5 /hpf (0-5); UROBILINOGEN NORMAL (NORMAL); WHITE CELLS - URINE 0-5 /hpf (0-5)
[2018-04-02 14:03] VITALS: BP 134/82
[2018-04-02 17:44] VITALS: BP 132/87
[2018-04-02 20:23] VITALS: BP 128/77
[2018-04-03 01:46] VITALS: BP 144/84
[2018-04-03 05:34] VITALS: BP 123/73
[2018-04-03 08:31] VITALS: BP 143/62
[2018-04-03 11:38] VITALS: BP 124/83
[2018-04-03 16:28] VITALS: BP 126/77
[2018-04-03 20:00] VITALS: BP 134/84
[2018-04-04] VITALS: BP 110/70
[2018-04-04 04:00] VITALS: BP 100/59
[2018-04-04 11:43] VITALS: BP 104/60
[2018-04-04 16:43] VITALS: BP 111/78
--- NOTE | 2018-04-05 08:34 | MORECARE ---
CASE MANAGEMENT DISCHARGE SUMMARY PATIENT: WARNER BARRY UNIT: [id number] ADM DATE: 04/01/18 AGE: 57 : 58 SEX: F ROOM/BED: D.2116 AUTHOR: BELLO MCKENZIE PHYSICIAN: REFERRING PHYSICIAN: RICCARDO JAUREGUI MD DATE OF SERVICE: 04/05/18 Discharge Plan Patient Name: WARNER BARRY Facility: [facility]:[place] : 1960 Planned Disposition: Home Anticipated Discharge Date: 04/04/18 Discharge Date: 04/04/2018 Expected LOS: 3 Initial Reviewer: [email or web address] Initial Review Date: 04/05/2018 Generated: 04/05/18 9:33 am Patient Name: WARNER BARRY Page [id number] at 0834 All edits/amendments must be made on the electronic document DICTATION DATE: 04/05/18832 LEATHER POLISHER: DM 04/05/18832 RPT#: [id number] DC DATE:04/04/18 STATUS: DIS IN [facility] [address] [place] [address] END OF REPORT
== END 2018-04-04 18:05 | disposition home or self-care (01) ==
LOC: D.MS 13:43 → EDSTATUS 13:45 → D.M2 14:20 → OBSVTIME 14:20 → D.M2 04-04 18:05
PROVIDERS: Internal Medicine Cardiovascular Disease; ADMIT Family Medicine
DX: R07.89 Other chest pain (principal); I25.119 Atherosclerotic heart disease of native coronary artery with unspecified angina pectoris; T82.855A Stenosis of coronary artery stent, initial encounter; Y83.9 Surgical procedure, unspecified as the cause of abnormal reaction of the patient, or of later complication, without mention of misadventure at the time of the procedure; I10 Essential (primary) hypertension; J43.9 Emphysema, unspecified; K21.9 Gastro-esophageal reflux disease without esophagitis; F32.9 Major depressive disorder, single episode, unspecified; F41.9 Anxiety disorder, unspecified; Z86.73 Personal history of transient ischemic attack (TIA), and cerebral infarction without residual deficits; F17.213 Nicotine dependence, cigarettes, with withdrawal

== ENCOUNTER 2018-06-03 10:56 | Emergency (ER) | payer MEDICARE, MEDICAID ==
[~2018-06-03] VITALS: Ht 170.2 cm; Wt 56.8 kg
[2018-06-03 11:00] VITALS: Ht 170.2 cm; Wt 56.8 kg
[2018-06-03 11:28] LABS: BASOPHILS 0.2 % (0-2); EOSINOPHILS 1.7 % (0-7); HEMATOCRIT 38.8 % (36.0-48.0); HEMOGLOBIN 13.3 g/dL (12-16); IMMATURE GRANULOCYTES 0.2 % (0-5); LYMPHOCYTES 33.2 % (15-50); MCH 31.4 pg (26.0-34.0); MCHC 34.3 g/dL (31.0-37.0); MCV 91.5 fL (80.0-100.0); MEAN PLATELET VOLUME 9.4 fL (7.4-10.4); MONOCYTES 10.3 % (2-11); NEUTROPHILS 54.4 % (40-80); PLATELET COUNT 271 10x3/uL (130-400); RBC 4.24 10x6/uL (4.00-5.40); RDW 14.4 % (11.5-14.5); WBC 5.3 10x3/uL (4.8-10.8)
[2018-06-03 11:40] LABS: APTT 26.1 SECONDS (22.8-39.4); INR 0.98 (0.85-1.17); PROTIME 12.5 SECONDS (11.6-15.0)
[2018-06-03 11:41] LABS: ALKALINE PHOSPHATASE 120 U/L (46-116); ALT (SGPT) 12 U/L (10-68); BILIRUBIN - TOTAL 0.41 mg/dL (0.2-1.3); CALC OSMOLALITY 281 mosm/kg (275-300); CARBON DIOXIDE 27.9 mmol/L (21.0-32.0); CHLORIDE - SERUM 105 mmol/L (98-107); CREATININE - SERUM 0.8 mg/dL (0.6-1.3); GLUCOSE 101 mg/dL (74-106); POTASSIUM - SERUM 4.1 mmol/L (3.5-5.1); PROTEIN - SERUM 8.4 g/dL (6.4-8.2); SODIUM 142 mmol/L (136-145); UREA NITROGEN 9 mg/dL (7-18); eGFR NON AFRICAN AMERICAN 78 mL/min (90-120)
[2018-06-03 11:56] LABS: CKMB 0.4 U/L (0.0-3.6); CREATINE KINASE 33 UL (21-215); THYROID STIMULATING HORMONE 1.08 uIU/mL (0.36-3.74); TROPONIN-I < 0.017 ng/mL (0.000-0.060)
[2018-06-03 12:26] LABS: APPEARANCE CLEAR (CLEAR); COLOR STRAW (YELLOW)
[2018-06-03 12:28] LABS: BILIRUBIN NEGATIVE (NEGATIVE); GLUCOSE NEGATIVE (NEGATIVE); KETONE NEGATIVE (NEGATIVE); NITRITE NEGATIVE (NEGATIVE); PROTEIN NEGATIVE (NEGATIVE); UROBILINOGEN NORMAL (NORMAL)
[2018-06-03 19:25] VITALS: BP 140/86
== END 2018-06-03 19:26 | disposition other institution (70) ==
LOC: D.ER 10:56
PROVIDERS: Family Medicine
DX: R20.2 Paresthesia of skin (principal); Z86.73 Personal history of transient ischemic attack (TIA), and cerebral infarction without residual deficits; E88.41 MELAS syndrome

== ENCOUNTER 2018-09-18 09:16 | Emergency (ER) | payer MEDICARE, MEDICAID ==
[~2018-09-18] VITALS: Ht 170.2 cm; Wt 75.0 kg
[2018-09-18 09:19] VITALS: Ht 170.2 cm; Wt 75.0 kg
[2018-09-18 09:39] LABS: BASOPHILS 0.2 % (0-2); EOSINOPHILS 2.6 % (0-7); HEMATOCRIT 36.9 % (36.0-48.0); HEMOGLOBIN 12.7 g/dL (12-16); IMMATURE GRANULOCYTES 0.2 % (0-5); LYMPHOCYTES 38.5 % (15-50); MCH 30.9 pg (26.0-34.0); MCHC 34.4 g/dL (31.0-37.0); MCV 89.8 fL (80.0-100.0); MEAN PLATELET VOLUME 9.3 fL (7.4-10.4); MONOCYTES 10.3 % (2-11); NEUTROPHILS 48.2 % (40-80); PLATELET COUNT 291 10x3/uL (130-400); RBC 4.11 10x6/uL (4.00-5.40); RDW 13.6 % (11.5-14.5); WBC 4.9 10x3/uL (4.8-10.8)
[2018-09-18 09:50] LABS: APTT 26.2 SECONDS (22.8-39.4); INR 0.95 (0.85-1.17); PROTIME 12.2 SECONDS (11.6-15.0)
[2018-09-18 09:59] LABS: ALBUMIN 3.9 g/dL (3.4-5.0); ALKALINE PHOSPHATASE 107 U/L (46-116); ALT (SGPT) 24 U/L (10-68); BILIRUBIN - TOTAL 0.39 mg/dL (0.2-1.3); CALC OSMOLALITY 279 mosm/kg (275-300); CALCIUM 9.3 mg/dL (8.5-10.1); CARBON DIOXIDE 27.2 mmol/L (21.0-32.0); CHLORIDE - SERUM 103 mmol/L (98-107); CREATININE - SERUM 0.9 mg/dL (0.6-1.3); GLUCOSE 95 mg/dL (74-106); PROTEIN - SERUM 8.2 g/dL (6.4-8.2); SODIUM 141 mmol/L (136-145); UREA NITROGEN 9 mg/dL (7-18); eGFR NON AFRICAN AMERICAN 68 mL/min (90-120)
[2018-09-18 10:11] LABS: AMYLASE - SERUM 63 U/L (25-115); CKMB 0.5 U/L (0.0-3.6); CREATINE KINASE 42 UL (21-215); LIPASE 152 U/L (73-393); MAGNESIUM - SERUM 1.9 mg/dL (1.8-2.4)
[2018-09-18 10:12] LABS: TROPONIN-I < 0.017 ng/mL (0.000-0.060)
[2018-09-18 10:24] VITALS: BP 132/78
== END 2018-09-18 10:25 | disposition home or self-care (01) ==
LOC: D.ER 09:16
PROVIDERS: Emergency Medicine
DX: R09.1 Pleurisy (principal); R07.89 Other chest pain; J43.9 Emphysema, unspecified; Z86.73 Personal history of transient ischemic attack (TIA), and cerebral infarction without residual deficits; K21.9 Gastro-esophageal reflux disease without esophagitis

== ENCOUNTER 2019-01-18 11:50 | Emergency (ER) | payer MEDICARE, MEDICAID ==
[~2019-01-18] VITALS: Ht 170.2 cm; Wt 63.2 kg
[2019-01-18 11:57] VITALS: Ht 170.2 cm; Wt 63.2 kg
[2019-01-18] MEDS ORDERED: BUTALB-APAP-CA1 EACH PO (12:53)
[2019-01-18] MEDS ORDERED: PHENERGAN25 M1 PO (12:54)
[2019-01-18 15:37] VITALS: BP 138/80
== END 2019-01-18 14:08 | disposition home or self-care (01) ==
LOC: D.ER 11:50
DX: G43.909 Migraine, unspecified, not intractable, without status migrainosus (principal)

== ENCOUNTER 2019-04-01 11:16 | Emergency (ER) | payer SELFPAY ==
[~2019-04-01] VITALS: Ht 170.2 cm; Wt 62.3 kg
[2019-04-01 11:22] VITALS: Ht 170.2 cm; Wt 62.3 kg
[2019-04-01 11:42] LABS: BASOPHILS 0.2 % (0-2); EOSINOPHILS 2.6 % (0-7); HEMATOCRIT 38.1 % (36.0-48.0); HEMOGLOBIN 12.9 g/dL (12-16); IMMATURE GRANULOCYTES 0.2 % (0-5); LYMPHOCYTES 46.9 % (15-50); MCH 31.4 pg (26.0-34.0); MCHC 33.9 g/dL (31.0-37.0); MCV 92.7 fL (80.0-100.0); MEAN PLATELET VOLUME 9.3 fL (7.4-10.4); MONOCYTES 10.5 % (2-11); NEUTROPHILS 39.6 % (40-80); PLATELET COUNT 330 10x3/uL (130-400); RBC 4.11 10x6/uL (4.00-5.40); RDW 13.3 % (11.5-14.5); WBC 4.2 10x3/uL (4.8-10.8)
[2019-04-01 12:04] LABS: CALC OSMOLALITY 280 mosm/kg (275-300); CALCIUM 8.5 mg/dL (8.5-10.1); CARBON DIOXIDE 24.9 mmol/L (21.0-32.0); CHLORIDE - SERUM 105 mmol/L (98-107); CREATININE - SERUM 0.9 mg/dL (0.6-1.3); GLUCOSE 113 mg/dL (74-106); POTASSIUM - SERUM 3.8 mmol/L (3.5-5.1); SODIUM 141 mmol/L (136-145); UREA NITROGEN 10 mg/dL (7-18); eGFR NON AFRICAN AMERICAN 68 mL/min (90-120)
[2019-04-01 12:21] LABS: ALBUMIN 3.6 g/dL (3.4-5.0); ALKALINE PHOSPHATASE 112 U/L (46-116); ALT (SGPT) 21 U/L (10-68); BILIRUBIN - TOTAL 0.19 mg/dL (0.2-1.3); CKMB 0.1 U/L (0.0-3.6); CREATINE KINASE 28 UL (21-215); MAGNESIUM - SERUM 1.8 mg/dL (1.8-2.4); PROTEIN - SERUM 7.5 g/dL (6.4-8.2); TROPONIN-I < 0.017 ng/mL (0.000-0.060)
[2019-04-01 12:45] LABS: APPEARANCE HAZY (CLEAR); COLOR YELLOW (YELLOW); SPECIFIC GRAVITY 1.015 (1.005-1.020)
[2019-04-01 12:46] LABS: BACTERIA FEW /hpf (NEGATIVE); BILIRUBIN NEGATIVE (NEGATIVE); EPITHELIAL CELLS 0-5 /hpf (0-5); GLUCOSE NEGATIVE (NEGATIVE); KETONE NEGATIVE (NEGATIVE); NITRITE POSITIVE (NEGATIVE); PROTEIN NEGATIVE (NEGATIVE); RED CELLS - URINE NONE SEEN /hpf (0-5); UROBILINOGEN NORMAL (NORMAL)
[2019-04-01] MEDS ORDERED: KEFLEX500 MG PO (13:17)
[2019-04-01 13:55] VITALS: BP 116/70
== END 2019-04-01 13:55 | disposition home or self-care (01) ==
LOC: D.ER 11:16
PROVIDERS: Family Medicine
DX: N39.0 Urinary tract infection, site not specified (principal); G89.29 Other chronic pain; M54.9 Dorsalgia, unspecified; M54.2 Cervicalgia; M54.10 Radiculopathy, site unspecified; Z86.73 Personal history of transient ischemic attack (TIA), and cerebral infarction without residual deficits; J43.9 Emphysema, unspecified; Z72.0 Tobacco use

== ENCOUNTER 2019-05-24 12:40 | Observation (INO) | payer BC ==
[~2019-05-24] VITALS: Ht 170.2 cm; Wt 64.1 kg
[~2019-05-24 12:40] MED LIST changes: +KEFLEX500 MG PO
[2019-05-24 13:30] VITALS: BP 152/91; BMI 22.1
[2019-05-24 13:59] LABS: BASOPHILS 0.2 % (0-2); EOSINOPHILS 0.6 % (0-7); HEMOGLOBIN 13.9 g/dL (12-16); IMMATURE GRANULOCYTES 0.2 % (0-5); LYMPHOCYTES 21.1 % (15-50); MCHC 33.9 g/dL (31.0-37.0); MCV 94.3 fL (80.0-100.0); MEAN PLATELET VOLUME 9.1 fL (7.4-10.4); MONOCYTES 7.6 % (2-11); NEUTROPHILS 70.3 % (40-80); PLATELET COUNT 302 10x3/uL (130-400); RBC 4.35 10x6/uL (4.00-5.40); RDW 14.4 % (11.5-14.5); WBC 8.4 10x3/uL (4.8-10.8)
[2019-05-24 14:11] LABS: CALC OSMOLALITY 280 mosm/kg (275-300); CALCIUM 9.2 mg/dL (8.5-10.1); CARBON DIOXIDE 27.9 mmol/L (21.0-32.0); CHLORIDE - SERUM 106 mmol/L (98-107); CREATININE - SERUM 0.7 mg/dL (0.6-1.3); GLUCOSE 99 mg/dL (74-106); POTASSIUM - SERUM 3.7 mmol/L (3.5-5.1); SODIUM 142 mmol/L (136-145); UREA NITROGEN 8 mg/dL (7-18); eGFR NON AFRICAN AMERICAN > 90 mL/min (90-120)
[2019-05-24 14:16] VITALS: Ht 170.2 cm; Wt 64.1 kg
[2019-05-24 14:28] LABS: ALKALINE PHOSPHATASE 105 U/L (30-120); ALT (SGPT) 31 U/L (10-68); BILIRUBIN - TOTAL 0.25 mg/dL (0.2-1.3); CKMB 0.1 U/L (0.0-3.6); CREATINE KINASE 40 UL (21-215); PROTEIN - SERUM 7.9 g/dL (6.4-8.2)
[2019-05-24 14:29] LABS: TROPONIN-I < 0.017 ng/mL (0.000-0.060)
[2019-05-24 14:58] LABS: BILIRUBIN NEGATIVE (NEGATIVE); GLUCOSE NEGATIVE (NEGATIVE); KETONE NEGATIVE (NEGATIVE); NITRITE NEGATIVE (NEGATIVE); UROBILINOGEN NORMAL (NORMAL)
[2019-05-24 15:39] VITALS: BP 144/91
[2019-05-24] MEDS ORDERED: PLAVIX75 MG PO (16:04)
--- NOTE | 2019-05-24 17:25 | NUR ---
LEAVING BY W/C FOR RESTING STRESS TEST.
--- NOTE | 2019-05-24 19:37 | NUR ---
RECEIVED BEDSIDE REPORT. PATIENT IS ALERT AND ORIENTED, RESTING COMFORTABLY IN BED. RESPIRATIONS ARE EVEN AND UNLABORED. NO S/S OF DISTRESS. PATIENT ASKED FOR PRN MEDICATIONS WHICH WERE ADMINISTERED. NEEDS MET. CALL LIGHT WITHIN REACH. WILL CPOC.
[2019-05-24 19:51] LABS: CKMB 0.1 U/L (0.0-3.6); CREATINE KINASE 40 UL (21-215)
[2019-05-24 19:56] LABS: TROPONIN-I < 0.017 ng/mL (0.000-0.060)
[2019-05-24 20:00] VITALS: BP 124/85
[2019-05-25] VITALS: BP 95/61
[2019-05-25 02:08] LABS: CKMB 0.1 U/L (0.0-3.6); CREATINE KINASE 38 UL (21-215)
[2019-05-25 02:11] LABS: TROPONIN-I < 0.017 ng/mL (0.000-0.060)
[2019-05-25 04:00] VITALS: BP 91/55
[2019-05-25 10:59] VITALS: BP 122/75
--- NOTE | 2019-05-25 11:00 | NUR ---
LEAVING FOR STRSS REST BY W/C.
--- NOTE | 2019-05-25 11:54 | NUR ---
BACK FROM STRESS TEST. DIET RESUMED.
[2019-05-25 13:52] VITALS: BP 121/72
--- NOTE | 2019-05-25 16:18 | NUR ---
PT C/O CHEST PAIN OR PRESSURE IN HER STERNUM/CHEST AREA THAT COMES AND GOES AND REQUESTED PRN MORPHINE. PT ALSO REQUESTED PRN FIORICET FOR HEADACHE AND WAS PROVIDED WITH IT. PT VOICED THANKS AND IS RESTING QUIETLY WITH FAMILY AT BEDSIDE WAITING ON STRESS TEST RESULTS. CL IN REACH, BED IN LOWEST, SIDE RAILS X2. WILL CTM.
--- NOTE | 2019-05-25 18:22 | MORECARE ---
CASE MANAGEMENT DISCHARGE SUMMARY PATIENT: WARNER BARRY UNIT: [id number] ADM DATE: 05/24/19 AGE: 58 : 58 SEX: F ROOM/BED: D.1 AUTHOR: BELLO MCKENZIE PHYSICIAN: REFERRING PHYSICIAN: RICCARDO JAUREGUI MD DATE OF SERVICE: 05/25/19 Discharge Plan Patient Name: WARNER BARRY Facility: [facility]:[place] : 1960 Planned Disposition: Anticipated Discharge Date: Discharge Date: Expected LOS: Initial Reviewer: [email or web address] Initial Review Date: 05/24/2019 Generated: 05/25/19 7:21 pm External Providers External Provider: OTHER-OTHER Next Contact Date: Service Request Date: Service Type: Resolution: Reviewer: Comments: Patient Name: WARNER BARRY Page [phone] at 1822 All edits/amendments must be made on the electronic document DICTATION DATE: 05/25/191820 MINING MANAGER: BR[place]N 05/25/191820 RPT#: [id number] DC DATE: STATUS: ADM IN [facility] [address] [place] [address] END OF REPORT
--- NOTE | 2019-05-25 19:36 | NUR ---
RECEIVED BEDSIDE REPORT. PATIENT IS ALERT AND ORIENTED, RESTING COMFORTABLY IN BED. RESPIRATIONS ARE EVEN AND UNLABORED. NO S/S OF DISTRESS. NO C/O PAIN. NEEDS MET. CALL LIGHT WITHIN REACH. WILL CPOC.
[2019-05-25 20:00] VITALS: BP 107/65
[2019-05-26] VITALS: BP 96/62
--- NOTE | 2019-05-26 01:51 | NUR ---
PATIENT RESTING COMFORTABLY IN BED. RESPIRATIONS ARE EVEN AND UNLABORED. NO S/S DISTRESS. NO C/O PAIN. CALL LIGHT WITHIN REACH. WILL CPOC.
[2019-05-26 04:00] VITALS: BP 101/65
--- NOTE | 2019-05-26 07:20 | NUR ---
REPORT RECEIVED FROM DIESEL MACHINIST AND PATIENT CARE ASSUMED. PATIENT LAYING IN BED AWAKE, ALERT AND ORIENTED X 4. PATIENT IS STABLE AND VSS. PATIENT REQUESTS PAIN MED FOR HEADACHE. MEDCATED WITH FIORICET PER MAY. WILL CONTINUE TO MONITOR. SR UP X 2 BED IN LOW POSITION AND CALL LIGHT IN REACH.
[2019-05-26 09:25] VITALS: BP 127/79
--- NOTE | 2019-05-26 10:21 | NUR ---
PATIENT LAYING IN BED WITH EYES CLOSED AND BREATHING EVENLY. WILL CONTINUE TO MONITOR. SR UP X 2 BED IN LOW POSITION AND CALL LIGHT IN REACH.
[2019-05-26] MEDS ORDERED: NORVASC2.5 MG PO (11:34)
[2019-05-26] MEDS ORDERED: LIPITOR20 MG PO (11:34)
[2019-05-26] MEDS ORDERED: ASPIRIN81 MG PO (11:35)
[2019-05-26] MEDS ORDERED: PROTONIX40 MG PO (11:35)
--- NOTE | 2019-05-26 12:46 | NUR ---
NO FLU SHOT UPON ADMIT, WHEN QUESTIONED- PATIENT REFUSED IT. SHE WANTED TO KNOW THE RESULTS OF HER STRESS TEST AND CXR REPORTS. I REVIEWED THEM WITH HER. SHE WANTS A COPY OF IT AND I INFORMED HER THAT SHE NEEDED TO GO TO [facility] ON WEDNESDAY WITH ID FOR RECORDS.
--- NOTE | 2019-05-26 13:30 | NUR ---
PATIENT IS STABLE AND VSS. PATIENT DENIES ANY NEEDS OR PAIN. ORDERS RECEIVED FOR DC. WRITTEN AND VERBAL ORDERS GIVEN TO PATIENT AND PATIENT VERBALIZED UNDERSTANDING. PATIENT SIGNED PAPERWORK. ASNWERED SEVERAL QUESTIONS FOR PATIENT TO PATIENTS SATISFACTION. PATIENT THANKIED THIS NURSE FOR CARING. IV DCD WITHOUT DIFFICULTY WITH ENTIRE CATHETER INTACT. PRESSURE DRSG APPLIED. PATIENT WAITING ON RIDE. SR UP X 2 BED IN LOW POSITION AND CALL LIGHT IN REACH.
--- NOTE | 2019-05-26 14:21 | NUR ---
PATIENT TO FRONT DOOR VIA WC ACCOMAPNIED BY HOSPITAL STAFF AND FRIEND. PATIENT IS DCD HOME FOR SELF CARE VIA PRIVATE VEHICLE DRIVEN BY FRIEND.
--- NOTE | 2019-05-26 18:22 | MORECARE ---
CASE MANAGEMENT DISCHARGE SUMMARY PATIENT: WARNER BARRY UNIT: [id number] ADM DATE: 05/24/19 AGE: 58 : 58 SEX: F ROOM/BED: D.6307 AUTHOR: BELLO MCKENZIE PHYSICIAN: REFERRING PHYSICIAN: RICCARDO JAUREGUI MD DATE OF SERVICE: 05/26/19 Discharge Plan Patient Name: WARNER BARRY Facility: [facility]:[place] : 1960 Planned Disposition: Anticipated Discharge Date: Discharge Date: 05/26/2019 Expected LOS: Initial Reviewer: [email or web address] Initial Review Date: 05/24/2019 Generated: 05/26/19 7:22 pm Last DP export: 05/25/19 5:22 p Patient Name: WARNER BARRY Page [id number] at 1822 All edits/amendments must be made on the electronic document DICTATION DATE: 05/26/191821 PHYSICS INSTRUCTOR: BROOKLYN 05/26/191821 RPT#: [id number] DC DATE:05/26/19 STATUS: DIS IN [facility] [address] [place] [address] END OF REPORT
== END 2019-05-26 14:28 | disposition home or self-care (01) ==
LOC: D.M2 12:40 → OBSVTIME 12:59 → D.M2 12:59 → D.SDCHOLD 05-25 15:08 → D.M2 05-26 14:28
PROVIDERS: ADMIT Family Medicine; ATTEND Family Medicine
DX: I25.110 Atherosclerotic heart disease of native coronary artery with unstable angina pectoris (principal); I10 Essential (primary) hypertension; K21.9 Gastro-esophageal reflux disease without esophagitis; F17.203 Nicotine dependence unspecified, with withdrawal; G43.909 Migraine, unspecified, not intractable, without status migrainosus; F41.9 Anxiety disorder, unspecified; J43.9 Emphysema, unspecified; R50.9 Fever, unspecified

== ENCOUNTER → 2019-10-26 10:58 | Outpatient (CLI) | payer MEDICAID ==
[2019-05-24 14:16] VITALS: BMI 22.1
[~2019-10-26 10:58] MED LIST changes: +LIPITOR20 MG PO; +NORVASC2.5 MG PO
== END | disposition home or self-care (01) ==
LOC: D.LAB 10:58
PROVIDERS: ATTEND Family Medicine
DX: J44.9 Chronic obstructive pulmonary disease, unspecified (principal)

== ENCOUNTER 2020-01-10 12:59 | Inpatient (IN) | payer MEDICAID ==
[~2020-01-10] VITALS: Ht 170.2 cm; Wt 57.7 kg
[2020-01-10 13:46] LABS: CALC OSMOLALITY 277 mosm/kg (275-300); CALCIUM 9.5 mg/dL (8.5-10.1); CARBON DIOXIDE 30.1 mmol/L (21.0-32.0); CHLORIDE - SERUM 105 mmol/L (98-107); CREATININE - SERUM 0.8 mg/dL (0.6-1.3); GLUCOSE 106 mg/dL (74-106); POTASSIUM - SERUM 3.8 mmol/L (3.5-5.1); SODIUM 140 mmol/L (136-145); UREA NITROGEN 10 mg/dL (7-18); eGFR NON AFRICAN AMERICAN 77 mL/min (90-120)
[2020-01-10 13:59] LABS: PROTIME 13.2 SECONDS (11.6-15.0)
[2020-01-10 14:03] LABS: ALBUMIN 3.8 g/dL (3.4-5.0); ALKALINE PHOSPHATASE 87 U/L (30-120); ALT (SGPT) 20 U/L (10-68); BILIRUBIN - TOTAL 0.47 mg/dL (0.2-1.3); CKMB 0.7 U/L (0.0-3.6); CREATINE KINASE 31 UL (21-215); MAGNESIUM - SERUM 1.9 mg/dL (1.8-2.4); PROTEIN - SERUM 7.6 g/dL (6.4-8.2); TROPONIN-I < 0.017 ng/mL (0.000-0.060)
[2020-01-10 14:09] LABS: BASOPHILS 0.2 % (0-2); EOSINOPHILS 0.8 % (0-7); HEMATOCRIT 39.3 % (36.0-48.0); HEMOGLOBIN 13.2 g/dL (12-16); IMMATURE GRANULOCYTES 0.2 % (0-5); LYMPHOCYTES 28.3 % (15-50); MCH 30.3 pg (26.0-34.0); MCHC 33.6 g/dL (31.0-37.0); MCV 90.3 fL (80.0-100.0); MEAN PLATELET VOLUME 9.8 fL (7.4-10.4); MONOCYTES 7.3 % (2-11); NEUTROPHILS 63.2 % (40-80); PLATELET COUNT 255 10x3/uL (130-400); RBC 4.35 10x6/uL (4.00-5.40); RDW 13.8 % (11.5-14.5); WBC 6.3 10x3/uL (4.8-10.8)
[2020-01-10 15:19] VITALS: BP 144/78; BMI 19.9
[2020-01-10 16:19] VITALS: Ht 170.2 cm; Wt 57.7 kg
[2020-01-10 16:28] LABS: CKMB 0.9 U/L (0.0-3.6); CREATINE KINASE 68 UL (21-215)
[2020-01-10 16:30] LABS: TROPONIN-I < 0.017 ng/mL (0.000-0.060)
--- NOTE | 2020-01-10 19:25 | NUR ---
RECEIVED BEDSIDE REPORT. ROUNDING COMPLETE. PATIENT IS ALERT AND ORIENTED, RESTING COMFORTABLY IN BED. RESPIRATIONS ARE EVEN AND UNLABORED. NO S/S OF DISTRESS. NO C/O PAIN. CALL LIGHT WITHIN REACH. WILL CPOC.
[2020-01-10 20:00] VITALS: BP 112/58
[2020-01-10 22:36] LABS: CKMB 1.2 U/L (0.0-3.6); CREATINE KINASE 95 UL (21-215)
[2020-01-10 22:43] LABS: TROPONIN-I < 0.017 ng/mL (0.000-0.060)
[2020-01-11 04:05] LABS: BASOPHILS 0.2 % (0-2); EOSINOPHILS 1.9 % (0-7); HEMATOCRIT 34.4 % (36.0-48.0); HEMOGLOBIN 11.4 g/dL (12-16); IMMATURE GRANULOCYTES 0.2 % (0-5); LYMPHOCYTES 29.9 % (15-50); MCH 29.8 pg (26.0-34.0); MCHC 33.1 g/dL (31.0-37.0); MCV 90.1 fL (80.0-100.0); MEAN PLATELET VOLUME 9.6 fL (7.4-10.4); MONOCYTES 7.7 % (2-11); NEUTROPHILS 60.1 % (40-80); PLATELET COUNT 242 10x3/uL (130-400); RBC 3.82 10x6/uL (4.00-5.40); RDW 13.8 % (11.5-14.5); WBC 5.8 10x3/uL (4.8-10.8)
[2020-01-11 04:33] LABS: CALC OSMOLALITY 287 mosm/kg (275-300); CALCIUM 8.4 mg/dL (8.5-10.1); CARBON DIOXIDE 31.1 mmol/L (21.0-32.0); CHLORIDE - SERUM 108 mmol/L (98-107); CKMB 0.8 U/L (0.0-3.6); CREATINE KINASE 83 UL (21-215); CREATININE - SERUM 0.8 mg/dL (0.6-1.3); GLUCOSE 98 mg/dL (74-106); MAGNESIUM - SERUM 1.7 mg/dL (1.8-2.4); PHOSPHOROUS 4.5 mg/dL (2.5-4.9); POTASSIUM - SERUM 3.5 mmol/L (3.5-5.1); SODIUM 144 mmol/L (136-145); TROPONIN-I 0.022 ng/mL (0.000-0.060); eGFR NON AFRICAN AMERICAN 77 mL/min (90-120)
[2020-01-11 04:35] LABS: UREA NITROGEN 14 mg/dL (7-18)
[2020-01-11 08:42] LABS: LDL-HDL RATIO 0.7 ratio (1.5-3.5)
--- NOTE | 2020-01-11 08:57 | NUR ---
PAITENT GIVEN PO MEDS AND LOVENOX INJ.PATIENT DENIES FURTHER NEEDS.PATIENT REQUESTED PRN HYDROCODONE. PATIENT STATES THAT SHE HAS TO HAVE COMPAZINE OR PHENERGAN OR SHE WILL GET SICK WITH THE HYDROCODONE. NURSE VERBS UNDERSTANDING.
[2020-01-11 09:17] VITALS: BP 110/68
[2020-01-11 11:27] LABS: BILIRUBIN NEGATIVE (NEGATIVE); KETONE NEGATIVE (NEGATIVE); NITRITE POSITIVE (NEGATIVE); UROBILINOGEN NORMAL mg/dL (< 2); WHITE CELLS - URINE 0-5 HPF (0-4)
[2020-01-11 11:28] LABS: BACTERIA MANY HPF (NONE SEEN)
[2020-01-11 11:37] LABS: UDS - AMPHET NEGATIVE QUAL (NEGATIVE); UDS - BARB NEGATIVE QUAL (NEGATIVE); UDS - BENZO POSITIVE QUAL (NEGATIVE); UDS - COCAINE NEGATIVE QUAL (NEGATIVE); UDS - OPIATE POSITIVE QUAL (NEGATIVE); UDS - PCP NEGATIVE QUAL (NEGATIVE); UDS - THC NEGATIVE QUAL (NEGATIVE)
[2020-01-11 12:16] VITALS: BP 121/81
--- NOTE | 2020-01-11 12:48 | NUR ---
PATIENT IS SITTING UP IN BED THIS AM, NO PAIN OR PROBLEMS NOTED. PLAN OF CARE REVIEWED AND ASSESSMENT HAS BEEN COMPLETED. PATIENT DENIES NEEDS. CALL LIGHT IN REACH
[2020-01-11 16:00] VITALS: BP 108/70
--- NOTE | 2020-01-11 18:10 | NUR ---
PATIENTSTILL WAITING TO TALK TO THE 'STOMACH MD'. STATES SHE HASN'T BEEN TALKED TO ABOUT HER BRAIN SCAN, HER ABD OR ANYTHING. SHE KNOWS HER HEART IS OKAY BUT WANTS TO HEAR REST. PROBABLY CANT GO HOME UNTIL ANYWAY SHE STATES. CALL LIGHT IN REACH
[2020-01-11 20:00] VITALS: BP 147/87
--- NOTE | 2020-01-11 20:31 | NUR ---
REPORT RECEIVED. WILL CONTINUE WITH POC. PT CURRENTLY LYING SEMI FOWLERS. CALL LIGHT W/I REACH. PT IS AAO AND UP AD SU. RR EVEN AND UNLABORED ON RA. R.HAND PIV SALINE LOCKED. EXPLAINED PT HER RESULTS OF MRI OF HEAD, LABS, MEDS, AND LATEST DOCTORS NOTES. PT EXTREMELY THANKFUL FOR MY EXPLANATION AND REASSURANCE. NO S/S OF DISTRESS NOTED. ADMININSTERED PAIN MEDICATION AND PHENERGAN PER PT REQUEST. PT DENIES ANY FURTHER NEEDS AT THIS TIME. WILL CTM.
[2020-01-12 04:00] VITALS: BP 98/70
[2020-01-12 07:21] VITALS: BP 103/62
[2020-01-12 07:36] LABS: BASOPHILS 0.2 % (0-2); EOSINOPHILS 1.7 % (0-7); HEMATOCRIT 34.8 % (36.0-48.0); HEMOGLOBIN 11.6 g/dL (12-16); IMMATURE GRANULOCYTES 0.4 % (0-5); MCH 30.1 pg (26.0-34.0); MCHC 33.3 g/dL (31.0-37.0); MCV 90.2 fL (80.0-100.0); MEAN PLATELET VOLUME 10.1 fL (7.4-10.4); NEUTROPHILS 47.7 % (40-80); PLATELET COUNT 253 10x3/uL (130-400); RBC 3.86 10x6/uL (4.00-5.40); WBC 5.3 10x3/uL (4.8-10.8)
[2020-01-12 07:40] LABS: CALC OSMOLALITY 286 mosm/kg (275-300); CALCIUM 8.5 mg/dL (8.5-10.1); CARBON DIOXIDE 29.3 mmol/L (21.0-32.0); CHLORIDE - SERUM 108 mmol/L (98-107); CREATININE - SERUM 0.8 mg/dL (0.6-1.3); GLUCOSE 88 mg/dL (74-106); MAGNESIUM - SERUM 1.7 mg/dL (1.8-2.4); PHOSPHOROUS 4.2 mg/dL (2.5-4.9); POTASSIUM - SERUM 3.8 mmol/L (3.5-5.1); SODIUM 144 mmol/L (136-145); UREA NITROGEN 16 mg/dL (7-18); eGFR NON AFRICAN AMERICAN 77 mL/min (90-120)
--- NOTE | 2020-01-12 08:27 | NUR ---
RECEIVED PATIENT RESTING THIS AM, DENIES PAIN OR DISCOMFORT. PLAN OF CARE REVIEWED AND ASSESSMENT HAS BEEN COMPLETED. PAITENT DENIES NEEDS. CALL LIGHT IN REACH. NAD NOTED.
--- NOTE | 2020-01-12 11:01 | NUR ---
DC INSTRUCTIONS GIVEN TO PATIENT AT THIS TIME. IV DC, CATH TIP INTACT. PATIENT'S PHARMACY CHANGED TO [facility]. PATIENT WAITING FOR HER RIDE TO GO HOME
--- NOTE | 2020-01-12 12:37 | NUR ---
PATIENT BEING WHEELED OUT AT THIS TIME. BELONGINGS IN HAND. PATIENT LEAVING IN PERSONAL VEHICLE.
== END 2020-01-12 12:40 | disposition home or self-care (01) | DRG 313 ==
LOC: D.ER 12:59 → EDSTATUS 14:10 → D.M2 14:14 → OBSVTIME 14:14 → D.M2 14:14
PROVIDERS: Emergency Medicine; Family Medicine; ADMIT Family Medicine; ATTEND Family Medicine
DX: R07.9 Chest pain, unspecified (principal); F17.203 Nicotine dependence unspecified, with withdrawal; N39.0 Urinary tract infection, site not specified; K21.9 Gastro-esophageal reflux disease without esophagitis; F41.8 Other specified anxiety disorders; B19.20 Unspecified viral hepatitis C without hepatic coma; I25.10 Atherosclerotic heart disease of native coronary artery without angina pectoris; I10 Essential (primary) hypertension; J43.9 Emphysema, unspecified; Z86.73 Personal history of transient ischemic attack (TIA), and cerebral infarction without residual deficits